=== PATIENT | female | born 1975 | race Caucasian/White ===

== ENCOUNTER 2016-10-20 11:21 | Day surgery (SDC) | payer OTHER ==
[2016-10-16 11:06] VITALS: BMI 28.5
[~2016-10-20 11:21] MED LIST: DEXAMETHASONE SOD PHOSPHATE 10 MG/ML 1 ML VIAL IV ONE; HYDROmorphone 1 MG/ML 1 ML SYRINGE IVP PRN; LACTATED RINGERS 1,000 ML IV SCH; MIDAZOLAM 2 MG/2 ML VIAL IV PRN; ONDANSETRON 4 MG/2 ML VIAL IVP ONE; Pre Op ABX Message 1 EACH MISC MISCELLANE ONE; SCOPOLAMINE 1.5MG/72HR PATCH TRANSDERM ONE
[2016-10-20 11:55] VITALS: RESP 16; TEMP 97.7
[2016-10-20] MEDS ORDERED: LIDOCAINE 1% 20 ML VIAL (10MG/ML) FOR IV START INTRADERMA ONE (11:56)
[2016-10-20] MEDS ORDERED: KETOROLAC 30 MG/ML 1 ML VIAL ONE (14:02)
[2016-10-20] MEDS ORDERED: fentaNYL (PF) 50 MCG/ML 2 ML AMP ONE (14:02)
[2016-10-20] MEDS ORDERED: LIDOCAINE 2% (PF) 20 MG/ML 10ML SQ ONE (14:02)
[2016-10-20] MEDS ORDERED: LIDOCAINE 1% INJ 10MG/ML (20 ML MDV) ONE (14:02)
[2016-10-20] MEDS ORDERED: MIDAZOLAM 2 MG/2 ML VIAL ONE (14:02)
[2016-10-20] MEDS ORDERED: PROPOFOL 10 MG/ML 20 ML VIAL IV ONE (14:02)
[2016-10-20 15:03] VITALS: BP 111/64; PULSE 88
--- NOTE | 2016-10-20 17:57 | P.OP ---
Date of Procedure: 10/20/16 Procedure(s) Performed: PREOPERATIVE DIAGNOSES: 1. Right carpal tunnel syndrome POSTOPERATIVE DIAGNOSES: 1 Right carpal tunnel syndrome PROCEDURES PERFORMED: 1. Right open carpal tunnel release ANESTHESIA: Local plus IV sedation FIRE CAPTAIN MARINE: None COMPLICATIONS: None ESTIMATED BLOOD LOSS: Less than 10 cc TOURNIQUET: 10 minutes DISPOSITION: To post-anesthesia care unit INDICATIONS: Mariah is a 41-year-old female with a history of carpal tunnel syndrome, who presents today for carpal tunnel release. The risks and potential complications of surgery have been discussed at length. The consent form has been signed. PROCEDURE: The patient was taken to the operating room after appropriate consent was obtained. IV sedation was initiated and the right upper extremity was prepared and draped in the usual aseptic fashion with Hibiclens prep. The path of the incision and deeper tissues were injected with 2% Lidocaine solution. A total of approximately 10 cc was used. Exsanguination of the limb with an Esmarch bandage was accomplished and the tourniquet was inflated to 200 mm Hg. The skin was then incised with a scalpel just through the dermis into the subcutaneous tissue. The location of the incision was at the base of the palm, at the radial border of the fourth ray. Blunt spreading using dissecting scissors was performed down to palmar fascia, which was then split using a #15 blade scalpel, revealing the underlying transverse carpal ligament. The transverse carpal ligament was incised with this blade under direct visualization at its ulnar border until it was fully released. The contents of the carpal tunnel were normal. No aberrant muscles, tenosynovitis, or tumors were noted. The proximal and distal fascial releases were completed using gentle push technique with small dissecting scissors. Complete release was confirmed by visualization and palpation. Hemostasis was obtained with a bipolar electrocautery device as well as pressure over the wound after deflation of the tourniquet. Closure was performed with 4-0 nylon sutures in vertical mattress technique. Sterile dressing and light compressive dressing were applied and the patient was taken to recovery room in stable condition. Sponge and needle count were correct.
== END 2016-10-20 15:14 | disposition home or self-care (01) ==
LOC: OR 11:21
PROVIDERS: ATTEND Orthopaedic Surgery
DX: G56.03 Carpal tunnel syndrome, bilateral upper limbs (principal); Z87.891 Personal history of nicotine dependence; Z88.1 Allergy status to other antibiotic agents; Z88.0 Allergy status to penicillin
CPT/HCPCS: 81025; 64721; J2250; J1100; J2001 ×2; J2405; J3010; J1885; J2704

== ENCOUNTER 2016-11-14 07:32 | Day surgery (SDC) | payer OTHER ==
[2016-11-10 14:50] VITALS: BMI 28.1
[~2016-11-14 07:32] MED LIST changes: +ACETAMINOPHEN TAB 500 MG TAB PO ONE; +MELOXICAM 7.5 MG TAB PO ONE
[2016-11-14 08:01] VITALS: TEMP 97.8
[2016-11-14] MEDS ORDERED: LIDOCAINE 1% 20 ML VIAL (10MG/ML) FOR IV START INTRADERMA ONE (08:12)
[2016-11-14] MEDS ORDERED: LIDOCAINE 1% INJ 10MG/ML (20 ML MDV) ONE (09:27)
[2016-11-14] MEDS ORDERED: PROPOFOL 10 MG/ML 20 ML VIAL IV ONE (09:27)
[2016-11-14] MEDS ORDERED: MIDAZOLAM 2 MG/2 ML VIAL ONE (09:27)
[2016-11-14] MEDS ORDERED: LIDOCAINE HCL/PF 20 MG/ML 10 ML AMP SQ ONE (09:51)
[2016-11-14 10:26] VITALS: RESP 18
[2016-11-14 10:43] VITALS: BP 104/67; PULSE 75
--- NOTE | 2016-11-24 08:14 | P.OP ---
Date of Procedure: 11/14/16 Preoperative Diagnosis: Postoperative Diagnosis: Procedure(s) Performed: PREOPERATIVE DIAGNOSES: 1. Left carpal tunnel syndrome POSTOPERATIVE DIAGNOSES: 1. Left carpal tunnel syndrome PROCEDURES PERFORMED: 1. Left open carpal tunnel release ANESTHESIA: Local plus IV sedation BONE GLUE MAKER: None COMPLICATIONS: None ESTIMATED BLOOD LOSS: Less than 10 cc TOURNIQUET: 10 minutes DISPOSITION: To post-anesthesia care unit INDICATIONS: Mariah is a 41-year-old female with a history of carpal tunnel syndrome, who presents today for carpal tunnel release. The risks and potential complications of surgery have been discussed at length. The consent form has been signed. PROCEDURE: The patient was taken to the operating room after appropriate consent was obtained. IV sedation was initiated and the right upper extremity was prepared and draped in the usual aseptic fashion with Hibiclens prep. The path of the incision and deeper tissues were injected with 2% Lidocaine solution. A total of approximately 10 cc was used. Exsanguination of the limb with an Esmarch bandage was accomplished and the tourniquet was inflated to 200 mm Hg. The skin was then incised with a scalpel just through the dermis into the subcutaneous tissue. The location of the incision was at the base of the palm, at the radial border of the fourth ray. Blunt spreading using dissecting scissors was performed down to palmar fascia, which was then split using a #15 blade scalpel, revealing the underlying transverse carpal ligament. The transverse carpal ligament was incised with this blade under direct visualization at its ulnar border until it was fully released. The contents of the carpal tunnel were normal. No aberrant muscles, tenosynovitis, or tumors were noted. The proximal and distal fascial releases were completed using gentle push technique with small dissecting scissors. Complete release was confirmed by visualization and palpation. Hemostasis was obtained with a bipolar electrocautery device as well as pressure over the wound after deflation of the tourniquet. Closure was performed with 4-0 nylon sutures in vertical mattress technique. Sterile dressing and light compressive dressing were applied and the patient was taken to recovery room in stable condition. Sponge and needle count were correct. Implants: Indications for Procedure: Operative Findings: Description of Procedure:
== END 2016-11-14 11:07 | disposition home or self-care (01) ==
LOC: OR 07:32
PROVIDERS: ATTEND Orthopaedic Surgery
DX: G56.02 Carpal tunnel syndrome, left upper limb (principal); G56.01 Carpal tunnel syndrome, right upper limb; F17.200 Nicotine dependence, unspecified, uncomplicated; Z88.1 Allergy status to other antibiotic agents; Z88.0 Allergy status to penicillin
CPT/HCPCS: 81025; 64721; J2250; J1100; J2405; J2001 ×2; J2704

== ENCOUNTER → 2017-11-11 | Outpatient (CLI) | payer OTHER | END | disposition home or self-care (01) | LOC: LABWHC1 08:49 | PROVIDERS: ATTEND Internal Medicine Cardiovascular Disease | DX: E78.2 Mixed hyperlipidemia (principal) | CPT/HCPCS: 36415; 83695; 83704 ==

== ENCOUNTER → 2018-04-15 | Outpatient (CLI) | payer OTHER ==
--- NOTE | 2018-04-15 16:04 | CT ---
EXAMINATION TYPE: CT angio chest DATE OF EXAM: 04/15/2018 COMPARISON: None HISTORY: Chest pain and SOB x3 days CT DLP: 227.4 mGycm CONTRAST: CT chest with contrast and 3D reconstruction with MIP imaging is performed with IV Contrast, patient injected with 100 mL of Isovue 370. Contrast-enhanced CT of the chest was performed through the course of the pulmonary arteries with uriel g and mediastinal window settings submitted. 3D reconstruction with MIP imaging was also performed. PULMONARY ARTERIES: The pulmonary arteries and their major tributaries are patent. I do not see christiano dence for sizable filling defect to suggest pulmonary embolic process. LUNGS: The lungs are clear and free of infiltrate. No evidence for atelectasis. No pulmonary nodule or mass is detected. No pleural effusion. MEDIASTINUM: Thoracic aorta is of normal caliber,however, evaluation is limited given timing of the contrast bolus. If there is concern for thoracic aortic pathology consider QUEENIE. Correlate clinicall y . The heart is not enlarged. No evidence for mediastinal mass. No mediastinal lymph nodes greater than 1cm. HILAR STRUCTURES: No evidence for mass. No hilar lymph nodes greater than 1 cm. UPPER ABDOMEN: Incidental cholelithiasis. IMPRESSION: 1. No evidence for Pulmonary embolism at this time.
== END | disposition home or self-care (01) ==
LOC: RADCTMAIN 15:13
PROVIDERS: ATTEND Nurse Practitioner Family
DX: R07.1 Chest pain on breathing (principal)
CPT/HCPCS: 71275; Q9967

== ENCOUNTER 2018-10-02 09:48 | Emergency (ER) | payer OTHER ==
[2018-10-02 09:55] VITALS: RESP 18
[2018-10-02] MEDS ORDERED: IPRATROPIUM-ALBUTEROL 3 ML NEB INHALATION STA (10:20)
--- NOTE | 2018-10-02 10:23 | ED ---
Chest Pain HPI - General Chief Complaint: Chest Pain Stated Complaint: Chest pain Time Seen by Provider: 10/02/18 10:08 Source: patient Mode of arrival: wheelchair Limitations: no limitations - History of Present Illness Initial Comments: Patient is a 43-year-old female presenting for chest pain. The patient states that for the last 7 days, she has had a "head cold" where she has been having runny nose, congestion and coughing. However, for last 2 days, she has been having left-sided chest pressure which is been constant. She admits to some weird tingling sensation on the top of her chest as well. She states that she has not had any fevers or chills or vomiting or diarrhea but has a little bit of nausea. She was seen at [facility] and sent here for further evaluation. Pt also denies any prolonged periods of immobility, CA, DVT/PE, estrogen use, or recent surgery. - Related Data Home Medications Medication Instructions Recorded Confirmed Bismuth Subsalicylate 524 mg PO Q8H 10/02/18 10/02/18 [Pepto-Bismol] Multivitamin/Iron/Folic Acid 1 tab PO DAILY 10/02/18 10/02/18 [Centrum Complete Multivit Tab] Phenylephrine/Dm/Acetaminop/GG 5 ml PO Q8HR 10/02/18 10/02/18 [Vicks Dayquil Severe Cold-Flu] Theraflu Cold And Flu 30 ml PO Q8H 10/02/18 10/02/18 Allergies Allergy/AdvReac Type Severity Reaction Status Date / Time cefaclor [From [facility]] Allergy Swelling Verified 10/02/18 10:15 Penicillins Allergy Swelling Verified 10/02/18 10:15 Review of Systems ROS Statement: Those systems with pertinent positive or pertinent negative responses have been documented in the HPI. Constitutional: Negative for chills, fatigue and fever. HENT: Positive for congestion. Positive for runny nose Respiratory: Positive for chest tightness, shortness of breath and negative for wheezing. Positive for cough Cardiovascular: Positive for chest pain and negative for palpitations. Gastrointestinal: Negative for abdominal pain. Negative for abdominal distention, diarrhea, nausea and vomiting. Genitourinary: Negative for dysuria. Musculoskeletal: Negative for back pain, neck pain and neck stiffness. Skin: Negative for color change. Neurological: Negative for dizziness, speech difficulty, weakness and light- headedness. Psychiatric/Behavioral: Negative for agitation and confusion. Negative for anxiety ROS Other: All systems not noted in ROS Statement are negative. EKG Findings - EKG Comments: EKG Findings:: EKG shows normal sinus rhythm with rate of 72 bpm, ID interval 142, QRS 78, QTC 418. There is no significant ST depressions or elevations. Past Medical History Past Medical History: No Reported History Additional Past Medical History / Comment(s): CARPAL TUNNEL SYNDROME LEFT WRIST., PT HAD RIGHT WRIST CTR ON 10/20/16-STATES INCISION AREA "PEELING". History of Any Multi-Drug Resistant Organisms: None Reported Past Surgical History: Tubal Ligation, Uterine Ablation Additional Past Surgical History / Comment(s): bilateral salpinectomy, CARPAL TUNNEL RELEASE RIGHT WRIST (10/20/16) Past Anesthesia/Blood Transfusion Reactions: Postoperative Nausea & Vomiting (PONV) Past Psychological History: No Psychological Hx Reported Smoking Status: Current some day smoker Past Alcohol Use History: Occasional Past Drug Use History: None Reported - Past Family History Mother Family Medical History: No Reported History General Exam - General Exam Comments Initial Comments: Constitutional: Pt appears well-developed and well-nourished. No distress. Head: Normocephalic and atraumatic. Eyes: EOM are normal. Neck: Normal range of motion. Neck supple. Cardiovascular: Normal rate, regular rhythm, S1 normal, S2 normal and normal heart sounds. Exam reveals no gallop and no friction rub. No murmur heard. Pulmonary/Chest: Effort normal and breath sounds normal. No tachypnea and no bradypnea. No respiratory distress. No wheezes or rales noted. Abdominal: Soft. Bowel sounds are normal. Pt exhibits no shifting dullness, no distension, no pulsatile liver, no fluid wave, no abdominal bruit and no ascites. There is no rigidity, no rebound, no guarding, no tenderness at McBurney's point and negative Damian's sign. There is no tenderness. Musculoskeletal: Normal range of motion. Neurological: Pt is alert and oriented to person, place, and time. No cranial nerve deficit. Skin: Skin is warm and dry. No rash noted. Pt is not diaphoretic. No erythema. No pallor. Psychiatric: Pt has a normal mood and affect. Pt behavior is normal. Thought content normal. Limitations: no limitations Course Vital Signs 10/02/18 10/02/18 10/02/18 09:52 10:08 10:29 Temperature 98.1 F Pulse Rate 79 82 Pulse Rate [ 85 [employer] Devil ] Respiratory 18 Rate Blood Pressure 126/82 O2 Sat by Pulse 99 Oximetry 10/02/18 10/02/18 10/02/18 10:37 12:18 13:18 Temperature 97.9 F Pulse Rate 80 63 77 Pulse Rate [ Printer'[employer] Devil ] Respiratory 18 18 Rate Blood Pressure 112/74 107/80 O2 Sat by Pulse 99 100 Oximetry Chest Pain MDM - MDM Serial troponins were negative as well as d-dimer and EKG had no significant findings consistent with ACS. Chest x-ray was also negative for infection. Findings were consistent with possible costochondritis as well as muscle skeletal pain. However, the patient was advised that if the symptoms worsen, she should return as ACS cannot be completely excluded. There is also no evidence of significant leukocytosis or electrolyte derangements.Explained all labs and diagnostic test results and that we will discharge the patient home and patient is to follow up with PCP in 1-2 days and return to the ED if symptoms worsen. Pt is agreeable to plan. Disposition Clinical Impression: Chest pain, Upper respiratory infection Disposition: HOME SELF-CARE Condition: Good Instructions (If sedation given, give patient instructions): Chest Pain (ED), Costochondritis (ED) Is patient prescribed a controlled substance at d/c from ED?: No Referrals: Deepa Hernandez MD [Primary Care Provider] - 1-2 days Time of Disposition: 13:57
[2018-10-02 10:31] LABS: Basophils # (A) 0.1 k/uL (0-0.2); Basophils % (A) 1 %; Eosinophils # (A) 0.2 k/uL (0-0.7); Eosinophils % (A) 2 %; HCT 45.4 % (34.0-46.0); HGB 14.3 gm/dL (11.4-16.0); Lymphocytes # (A) 2.3 k/uL (1.0-4.8); Lymphocytes % (A) 25 %; MCH 29.5 pg (25.0-35.0); MCHC 31.6 g/dL (31.0-37.0); MCV 93.5 fL (80.0-100.0); Mean Platelet Volume 7.1; Monocytes # (A) 0.5 k/uL (0-1.0); Monocytes % (A) 5 %; Neutrophils # (A) 6.1 k/uL (1.3-7.7); Neutrophils % (A) 65 %; Platelet Count 321 k/uL (150-450); RBC 4.86 m/uL (3.80-5.40); RDW 13.3 % (11.5-15.5); WBC 9.4 k/uL (3.8-10.6)
[2018-10-02 10:40] LABS: ALT 26 U/L (9-52); AST 31 U/L (14-36); Albumin 4.5 g/dL (3.5-5.0); Alkaline Phosphatase 83 U/L (38-126); Anion Gap 9 mmol/L; Blood Urea Nitrogen 9 mg/dL (7-17); Calcium 10.2 mg/dL (8.4-10.2); Carbon Dioxide 23 mmol/L (22-30); Chloride 109 mmol/L (98-107); Glucose 104 mg/dL (74-99); Potassium 4.5 mmol/L (3.5-5.1); Sodium 141 mmol/L (137-145); Total Bilirubin 0.7 mg/dL (0.2-1.3); Total Protein 7.3 g/dL (6.3-8.2)
[2018-10-02 10:50] LABS: D-Dimer 0.3 mg/L FEU (<0.60); INR 0.9 (<1.2); Partial Thromboplastin Time 24.8 sec (22.0-30.0); Prothrombin Time 9.8 sec (9.0-12.0)
--- NOTE | 2018-10-02 10:54 | XR ---
EXAMINATION TYPE: XR chest 2V DATE OF EXAM: 10/02/2018 HISTORY: Chest Pain. REFERENCE: Previous study dated 03/08/2012. FINDINGS: The lungs are clear. Pleural spaces are clear. The heart is not enlarged. IMPRESSION: NO ACTIVE INTRATHORACIC DISEASE.
[2018-10-02 14:38] VITALS: BP 127/79; PULSE 74; TEMP 98.1
== END 2018-10-02 14:37 | disposition home or self-care (01) ==
LOC: EC 09:48
DX: J06.9 Acute upper respiratory infection, unspecified (principal); R07.89 Other chest pain; F17.200 Nicotine dependence, unspecified, uncomplicated; Z88.0 Allergy status to penicillin; Z88.1 Allergy status to other antibiotic agents; Z79.899 Other long term (current) drug therapy
CPT/HCPCS: 36415; 71046; 80053; 81025; 83735; 84484; 85025; 85379; 85610; 85730; 93005; 94640; 99285

== ENCOUNTER 2019-09-13 13:01 | Emergency (ER) | payer OTHER ==
[2019-09-13 13:05] VITALS: TEMP 97.2
[2019-09-13] MEDS ORDERED: ASPIRIN 81 MG PO STA (13:25)
[2019-09-13] MEDS ORDERED: NITROGLYCERIN OINT 1 INCH/GM PACKET TOPICAL STA (13:25)
--- NOTE | 2019-09-13 13:32 | ED ---
General Adult HPI - General Chief complaint: Chest Pain Stated complaint: Chest pain Time Seen by Provider: 09/13/19 13:09 Source: patient, EMS, RN notes reviewed Mode of arrival: EMS Limitations: no limitations - History of Present Illness Initial comments: Patient is a pleasant 44-year-old female presenting to the emergency Department with complaints of chest discomfort. Onset of symptoms was just prior to arrival. Patient was doing laundry. Patient had chest pressure/tightness with some radiation towards the shoulder. Patient was short of breath and sweaty however those both resolved. There was some mild nausea that has also resolved. No history of similar symptoms previously. Symptoms were severe however now mild following nitroglycerin. Patient does have history of hypercholesterolemia and tobacco use. - Related Data Home Medications Medication Instructions Recorded Confirmed Bismuth Subsalicylate 524 mg PO Q8H 10/02/18 10/02/18 [Pepto-Bismol] Multivitamin/Iron/Folic Acid 1 tab PO DAILY 10/02/18 10/02/18 [Centrum Complete Multivit Tab] Phenylephrine/Dm/Acetaminop/GG 5 ml PO Q8HR 10/02/18 10/02/18 [Vicks Dayquil Severe Cold-Flu] Theraflu Cold And Flu 30 ml PO Q8H 10/02/18 10/02/18 Allergies Allergy/AdvReac Type Severity Reaction Status Date / Time cefaclor [From [facility]] Allergy Swelling Verified 10/02/18 10:15 Penicillins Allergy Swelling Verified 10/02/18 10:15 Review of Systems ROS Statement: Those systems with pertinent positive or pertinent negative responses have been documented in the HPI. ROS Other: All systems not noted in ROS Statement are negative. Constitutional: Denies: fever Eyes: Denies: eye pain ENT: Denies: ear pain Respiratory: Reports: as per HPI. Denies: cough Cardiovascular: Reports: as per HPI, chest pain Endocrine: Denies: fatigue Gastrointestinal: Reports: as per HPI. Denies: abdominal pain Genitourinary: Denies: dysuria Musculoskeletal: Denies: back pain Skin: Denies: rash Neurological: Denies: weakness Past Medical History Past Medical History: No Reported History Additional Past Medical History / Comment(s): CARPAL TUNNEL SYNDROME LEFT WRIST., PT HAD RIGHT WRIST CTR ON 10/20/16-STATES INCISION AREA "PEELING". History of Any Multi-Drug Resistant Organisms: None Reported Past Surgical History: Tubal Ligation, Uterine Ablation Additional Past Surgical History / Comment(s): bilateral salpinectomy, CARPAL TUNNEL RELEASE RIGHT WRIST (10/20/16) Past Anesthesia/Blood Transfusion Reactions: Postoperative Nausea & Vomiting (PONV) Past Psychological History: No Psychological Hx Reported Smoking Status: Current every day smoker Past Alcohol Use History: Occasional Past Drug Use History: None Reported - Past Family History Mother Family Medical History: No Reported History General Exam Limitations: no limitations General appearance: alert, in no apparent distress Head exam: Present: normocephalic Eye exam: Present: normal appearance Neck exam: Present: normal inspection Respiratory exam: Present: normal lung sounds bilaterally. Absent: chest wall tenderness Cardiovascular Exam: Present: regular rate, normal rhythm Expanded Peripheral pulses: 2+: Radial (R), Radial (L), Posterior Tibialis (R), Posterior Tibialis (L), Dorsalis Pedis (R), Dorsalis Pedis (L) GI/Abdominal exam: Present: soft. Absent: distended, tenderness Extremities exam: Present: normal inspection. Absent: pedal edema, calf tenderness Neurological exam: Present: alert Psychiatric exam: Present: normal affect, normal mood Skin exam: Present: normal color Course Vital Signs 09/13/19 09/13/19 09/13/19 13:02 13:14 13:30 Temperature 97.2 F L Pulse Rate 82 83 75 Respiratory 16 18 20 Rate Blood Pressure 117/72 117/72 103/68 O2 Sat by Pulse 97 97 97 Oximetry EKG Findings - EKG Comments: EKG Findings:: Normal sinus rhythm at 77. OK 140. QRS 78. QT 374. QTC 423. Normal axis. Normal QRS. No acute ST change. Medical Decision Making - Medical Decision Making Patient reevaluated and resting comfortably in bed, symptom-free. Patient updated and recommended admission. Patient is made aware of limitations of emergency department. Patient is made aware that troponin can be delayed and heart attack has not been ruled out at this time. Patient also made aware that risk for heart attack in the near future could be possible. Patient made aware recommendation is for admission for further testing and cardiology evaluation. Patient does demonstrate medical decision making. Patient refuses to stay, m ostly secondary to concerns regarding coronavirus pandemic. Patient will leave AGAINST MEDICAL ADVICE. - Lab Data Result diagrams: 09/13/19 13:19 09/13/19 13:19 Lab Results 09/13/19 09/13/19 09/13/19 Range/Units 13:19 13:19 13:19 WBC 15.4 H (3.8-10.6) k/uL RBC 4.67 (3.80-5.40) m/uL Hgb 13.9 (11.4-16.0) gm/dL Hct 42.8 (34.0-46.0) % MCV 91.7 (80.0-100.0) fL MCH 29.8 (25.0-35.0) pg MCHC 32.5 (31.0-37.0) g/dL RDW 13.1 (11.5-15.5) % Plt Count 269 (150-450) k/uL Neutrophils % 80 % Lymphocytes % 15 % Monocytes % 3 % Eosinophils % 1 % Basophils % 1 % Neutrophils # 12.4 H (1.3-7.7) k/uL Lymphocytes # 2.3 (1.0-4.8) k/uL Monocytes # 0.5 (0-1.0) k/uL Eosinophils # 0.1 (0-0.7) k/uL Basophils # 0.1 (0-0.2) k/uL PT 9.8 (9.0-12.0) sec INR 0.9 (<1.2) APTT 23.2 (22.0-30.0) sec D-Dimer 0.36 (<0.60) mg/L FEU Sodium 136 L (137-145) mmol/L Potassium 4.1 (3.5-5.1) mmol/L Chloride 104 (98-107) mmol/L Carbon Dioxide 24 (22-30) mmol/L Anion Gap 8 mmol/L BUN 13 (7-17) mg/dL Creatinine 0.72 (0.52-1.04) mg/dL Est GFR (CKD-EPI)AfAm >90 (>60 ml/min/1.73 sqM) Est GFR (CKD-EPI)NonAf >90 (>60 ml/min/1.73 sqM) Glucose 118 H (74-99) mg/dL Calcium 9.4 (8.4-10.2) mg/dL Magnesium 2.0 (1.6-2.3) mg/dL Total Bilirubin 0.6 (0.2-1.3) mg/dL AST 112 H (14-36) U/L ALT 60 H (4-34) U/L Alkaline Phosphatase 97 (38-126) U/L Troponin I (0.000-0.034) ng/mL Total Protein 6.9 (6.3-8.2) g/dL Albumin 4.1 (3.5-5.0) g/dL 09/13/19 Range/Units 13:19 WBC (3.8-10.6) k/uL RBC (3.80-5.40) m/uL Hgb (11.4-16.0) gm/dL Hct (34.0-46.0) % MCV (80.0-100.0) fL MCH (25.0-35.0) pg MCHC (31.0-37.0) g/dL RDW (11.5-15.5) % Plt Count (150-450) k/uL Neutrophils % % Lymphocytes % % Monocytes % % Eosinophils % % Basophils % % Neutrophils # (1.3-7.7) k/uL Lymphocytes # (1.0-4.8) k/uL Monocytes # (0-1.0) k/uL Eosinophils # (0-0.7) k/uL Basophils # (0-0.2) k/uL PT (9.0-12.0) sec INR (<1.2) APTT (22.0-30.0) sec D-Dimer (<0.60) mg/L FEU Sodium (137-145) mmol/L Potassium (3.5-5.1) mmol/L Chloride (98-107) mmol/L Carbon Dioxide (22-30) mmol/L Anion Gap mmol/L BUN (7-17) mg/dL Creatinine (0.52-1.04) mg/dL Est GFR (CKD-EPI)AfAm (>60 ml/min/1.73 sqM) Est GFR (CKD-EPI)NonAf (>60 ml/min/1.73 sqM) Glucose (74-99) mg/dL Calcium (8.4-10.2) mg/dL Magnesium (1.6-2.3) mg/dL Total Bilirubin (0.2-1.3) mg/dL AST (14-36) U/L ALT (4-34) U/L Alkaline Phosphatase (38-126) U/L Troponin I <0.012 (0.000-0.034) ng/mL Total Protein (6.3-8.2) g/dL Albumin (3.5-5.0) g/dL - Radiology Data Radiology results: image reviewed (Chest x-ray shows no acute process) Disposition Clinical Impression: Chest pain Disposition: Left Against Medical Advice Instructions (If sedation given, give patient instructions): Chest Pain (ED) Additional Instructions: Aspirin daily. Please follow-up with primary care physician tomorrow. Return for chest pain, difficulty breathing, worsening or changing symptoms or any other concerns. You're leaving AGAINST MEDICAL ADVICE. Is patient prescribed a controlled substance at d/c from ED?: No Referrals: Deepa Hernandez MD [Primary Care Provider] - 1-2 days Time of Disposition: 14:47
[2019-09-13 13:43] LABS: Basophils # (A) 0.1 k/uL (0-0.2); Basophils % (A) 1 %; Eosinophils # (A) 0.1 k/uL (0-0.7); Eosinophils % (A) 1 %; HCT 42.8 % (34.0-46.0); HGB 13.9 gm/dL (11.4-16.0); Lymphocytes # (A) 2.3 k/uL (1.0-4.8); Lymphocytes % (A) 15 %; MCH 29.8 pg (25.0-35.0); MCHC 32.5 g/dL (31.0-37.0); MCV 91.7 fL (80.0-100.0); Mean Platelet Volume 7.5; Monocytes # (A) 0.5 k/uL (0-1.0); Monocytes % (A) 3 %; Neutrophils # (A) 12.4 k/uL (1.3-7.7); Neutrophils % (A) 80 %; Platelet Count 269 k/uL (150-450); RBC 4.67 m/uL (3.80-5.40); RDW 13.1 % (11.5-15.5); WBC 15.4 k/uL (3.8-10.6)
--- NOTE | 2019-09-13 13:43 | XR ---
EXAMINATION TYPE: XR chest 2V DATE OF EXAM: 09/13/2019 COMPARISON: 10/02/2018 HISTORY: Chest pain TECHNIQUE: Frontal and lateral views of the chest are obtained. FINDINGS: There is no focal air space opacity. No evidence for pneumothorax. No pleural effusion. The cardiac silhouette size is within normal limits. The osseous structures are grossly intact. IMPRESSION: 1. No acute cardiopulmonary process.
[2019-09-13 13:59] LABS: D-Dimer 0.36 mg/L FEU (<0.60); INR 0.9 (<1.2); Partial Thromboplastin Time 23.2 sec (22.0-30.0); Prothrombin Time 9.8 sec (9.0-12.0)
[2019-09-13 14:05] LABS: ALT 60 U/L (4-34); AST 112 U/L (14-36); African American GFR (CKD) >90 (>60 ml/min/1.73 sqM); Albumin 4.1 g/dL (3.5-5.0); Alkaline Phosphatase 97 U/L (38-126); Anion Gap 8 mmol/L; Blood Urea Nitrogen 13 mg/dL (7-17); Calcium 9.4 mg/dL (8.4-10.2); Carbon Dioxide 24 mmol/L (22-30); Chloride 104 mmol/L (98-107); Glucose 118 mg/dL (74-99); Non-African American GFR(CKD) >90 (>60 ml/min/1.73 sqM); Potassium 4.1 mmol/L (3.5-5.1); Sodium 136 mmol/L (137-145); Total Bilirubin 0.6 mg/dL (0.2-1.3); Total Protein 6.9 g/dL (6.3-8.2)
[2019-09-13 14:57] VITALS: BP 117/79; PULSE 87; RESP 12
[2019-09-13 16:09] LABS: Hepatitis A Antibody IgM NEGATIVE
[2019-09-14 14:30] LABS: Hepatitis B Core IgM Non-Reactive (Non-Reactive); Hepatitis B Surface Antigen Non-Reactive (Non-Reactive); Hepatitis C IgG Antibody Non-Reactive (Non-Reactive)
== END 2019-09-13 14:57 | disposition left against medical advice (07) ==
LOC: EC 13:01
DX: R07.89 Other chest pain (principal); F17.200 Nicotine dependence, unspecified, uncomplicated; Z88.0 Allergy status to penicillin; Z88.1 Allergy status to other antibiotic agents
CPT/HCPCS: 36415; 71046; 80053; 80074; 83735; 84484; 85025; 85379; 85610; 85730; 93005; 99285

== ENCOUNTER → 2020-02-01 | Outpatient (CLI) | payer OTHER ==
[2020-02-01 20:22] LABS: Hepatitis A Ab, Total Non-Reactive (Non-Reactive); Hepatitis B Surface Antigen Non-Reactive (Non-Reactive)
== END | disposition home or self-care (01) ==
LOC: LABWHC1 12:05
PROVIDERS: ATTEND Midwife
DX: N95.1 Menopausal and female climacteric states (principal); Z11.3 Encounter for screening for infections with a predominantly sexual mode of transmission
CPT/HCPCS: 36415; 83001; 86708; 86780; 87340; 87522

== ENCOUNTER 2021-06-10 11:41 | Emergency (ER) | payer OTHER ==
[2021-06-10 12:15] VITALS: RESP 18; TEMP 98.3
[2021-06-10] MEDS ORDERED: LIDOCAINE 1% INJ 10MG/ML (20 ML MDV) SQ ONE (12:44)
[2021-06-10] MEDS ORDERED: DIPH,PERTUS(ACELL)TETVAC-LF 0.5 ML VIAL IM ONE (12:58)
--- NOTE | 2021-06-10 13:27 | XR ---
EXAMINATION TYPE: XR finger LT DATE OF EXAM: 06/10/2021 COMPARISON: NONE HISTORY: Laceration injury with pain. TECHNIQUE: 3 views left thumb. FINDINGS: No acute fracture or dislocation in the left thumb. Joint spaces are preserved. Overlying s oft tissue shows linear lucency suspected laceration near the ulnar base of the first proximal phalan x without radiodense foreign body identified. IMPRESSION: As above.
--- NOTE | 2021-06-10 13:59 | ED ---
Wound/Laceration HPI - General Chief Complaint: Wound/Laceration Stated Complaint: thumb lac Time Seen by Provider: 06/10/21 12:43 Source: patient, RN notes reviewed Mode of arrival: ambulatory Limitations: no limitations - History of Present Illness Initial Comments: Patient is a 45-year-old female that presents to the emergency room with a left thumb laceration. 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 She notes that she is unsure of her tetanus status. She denied any other issues or complaints. She notes that she really doesn't go to doctors for follow-up very often. She is otherwise well-appearing. She denied chest pain first breath headache nausea vomiting diarrhea constipation fever fatigue chills. - Related Data Home Medications Medication Instructions Recorded Confirmed Bismuth Subsalicylate 524 mg PO Q8H 10/02/18 10/02/18 [Pepto-Bismol] Multivitamin/Iron/Folic Acid 1 tab PO DAILY 10/02/18 10/02/18 [Centrum Complete Multivit Tab] Phenylephrine/Dm/Acetaminop/GG 5 ml PO Q8HR 10/02/18 10/02/18 [Vicks Dayquil Severe Cold-Flu] Theraflu Cold And Flu 30 ml PO Q8H 10/02/18 10/02/18 Previous Rx's Medication Instructions Recorded Doxycycline Monohydrate [Monodox] 100 mg PO Q12HR #20 cap 06/10/21 Allergies Allergy/AdvReac Type Severity Reaction Status Date / Time cefaclor [From Ceclor] Allergy Swelling Verified 06/10/21 12:12 Penicillins Allergy Swelling Verified 06/10/21 12:12 Review of Systems ROS Statement: Those systems with pertinent positive or pertinent negative responses have been documented in the HPI. ROS Other: All systems not noted in ROS Statement are negative. Past Medical History Past Medical History: No Reported History Additional Past Medical History / Comment(s): CARPAL TUNNEL SYNDROME LEFT WRIST., PT HAD RIGHT WRIST CTR ON 10/20/16-STATES INCISION AREA "PEELING". History of Any Multi-Drug Resistant Organisms: None Reported Past Surgical History: Tubal Ligation, Uterine Ablation Additional Past Surgical History / Comment(s): bilateral salpinectomy, CARPAL TUNNEL RELEASE RIGHT WRIST (10/20/16) Past Anesthesia/Blood Transfusion Reactions: Postoperative Nausea & Vomiting (PONV) Past Psychological History: No Psychological Hx Reported Smoking Status: Current every day smoker Past Alcohol Use History: Occasional Past Drug Use History: None Reported - Past Family History Mother Family Medical History: No Reported History General Exam Limitations: no limitations General appearance: alert, in no apparent distress Head exam: Present: atraumatic, normocephalic, normal inspection Eye exam: Present: normal appearance, PERRL, EOMI. Absent: scleral icterus, conjunctival injection, periorbital swelling ENT exam: Present: normal exam, mucous membranes moist Neck exam: Present: normal inspection Respiratory exam: Present: normal lung sounds bilaterally. Absent: respiratory distress, wheezes, rales, rhonchi, stridor Cardiovascular Exam: Present: regular rate, normal rhythm, normal heart sounds. Absent: systolic murmur, diastolic murmur, rubs, gallop, clicks Extremities exam: Present: normal inspection, full ROM, normal capillary refill. Absent: tenderness, pedal edema, joint swelling, calf tenderness Neurological exam: Present: alert, oriented X3 Psychiatric exam: Present: normal affect, normal mood Skin exam: Present: warm, dry, intact, normal color. Absent: rash Expanded Type of lesion: Present: laceration (Base of left thumb anterior aspect) Course Vital Signs 06/10/21 12:12 Temperature 98.3 F Pulse Rate 97 Respiratory 18 Rate Blood Pressure 122/72 O2 Sat by Pulse 97 Oximetry Procedures - Laceration Laceration #1 Consent Obtained: verbal consent Indication: laceration Site: foot (Left thumb) Size (cm): 2 Description: linear Depth: simple, single layer Anesthetic Used: lidocaine 1% Anesthesia Technique: local infiltration Amount (mls): 3 Pre-repair: wound explored Type of Sutures: nylon Size of Sutures: 5-0 Number of Sutures: 3 Technique: simple, interrupted Patient Tolerated Procedure: well, no complications Medical Decision Making - Medical Decision Making 45-year-old female with a laceration to left thumb. Tetanus updated, x-ray of the left thumb ordered. X-ray negative for any acute fractures dislocations or foreign bodies. Patient tolerated suturing well. Case discussed with Dr. Negrete, patient discharge home on antibiotics. Disposition Clinical Impression: Laceration Disposition: HOME SELF-CARE Condition: Stable Instructions (If sedation given, give patient instructions): Laceration (ED), Care For Your Stitches (ED) Additional Instructions: Please return to the Emergency Department if symptoms worsen or any other concerns. Follow-up with primary care in 1-2 days. Take antibiotics as prescribed until complete. Please return in 7-10 days to have sutures removed. Is patient prescribed a controlled substance at d/c from ED?: No Referrals: Deepa Hernandez MD [Primary Care Provider] - 1-2 days Time of Disposition: 13:58
[2021-06-10 14:32] VITALS: BP 107/79; PULSE 77
== END 2021-06-10 14:32 | disposition home or self-care (01) ==
LOC: EC 11:41
DX: S61.012A Laceration without foreign body of left thumb without damage to nail, initial encounter (principal); F17.200 Nicotine dependence, unspecified, uncomplicated; Z88.0 Allergy status to penicillin; Z98.51 Tubal ligation status; W26.8XXA Contact with other sharp object(s), not elsewhere classified, initial encounter
CPT/HCPCS: 99283; 90471; 12001; 73140; 90715; J2001

== ENCOUNTER 2023-11-26 15:24 | Emergency (ER) | payer OTHER ==
[2023-11-26 15:31] VITALS: RESP 18
--- NOTE | 2023-11-26 16:08 | ED ---
Abdominal Pain HPI - General Chief Complaint: Abdominal Pain Stated Complaint: food poisioning Time Seen by Provider: 11/26/23 15:56 Source: patient, RN notes reviewed, old records reviewed Mode of arrival: ambulatory Limitations: no limitations - History of Present Illness Initial Comments: This is a 48-year-old female to the ER for evaluation abdominal pain nausea vomiting and diarrhea. Severe and significant epigastric abdominal pain which she believes is caused from food poisoning from [employer] yesterday. Symptoms got worse today and throughout the day this morning and progressively worse here in the ER with main complaint being pain currently. Patient has no family with similar sick complaint patient has no fevers MD Complaint: abdominal pain -: hour(s) Location: RUQ, epigastric Radiation: RUQ, epigastric Migration to: epigastric Severity: moderate Severity scale (1-10): 6 Quality: cramping, fullness, sharp Consistency: constant Improves With: nothing Worsens With: nothing Associated Symptoms: nausea, vomiting, diarrhea Treatments Prior to Arrival: other (0) - Related Data Previous Rx's Medication Instructions Recorded oxyCODONE HCL [oxyCODONE HCL (IR)] 5 mg PO Q6H 3 Days #12 cap 11/28/23 Allergies Allergy/AdvReac Type Severity Reaction Status Date / Time Penicillins Allergy Swelling Verified 11/27/23 10:35 cefaclor [From Ceclor] AdvReac Nausea & Verified 11/27/23 10:35 Vomiting quetiapine [From Seroquel] AdvReac Hallucinati Verified 11/27/23 10:35 ons Review of Systems ROS Statement: Those systems with pertinent positive or pertinent negative responses have been documented in the HPI. ROS Other: All systems not noted in ROS Statement are negative. Past Medical History Past Medical History: No Reported History Additional Past Medical History / Comment(s): CARPAL TUNNEL SYNDROME LEFT WRIST., PT HAD RIGHT WRIST CTR ON 10/20/16-STATES INCISION AREA "PEELING". History of Any Multi-Drug Resistant Organisms: None Reported Past Surgical History: Tubal Ligation, Uterine Ablation Additional Past Surgical History / Comment(s): bilateral salpinectomy, CARPAL TUNNEL RELEASE RIGHT WRIST (10/20/16) Past Anesthesia/Blood Transfusion Reactions: Postoperative Nausea & Vomiting (PONV) Past Psychological History: No Psychological Hx Reported Smoking Status: Current every day smoker Past Alcohol Use History: Occasional Past Drug Use History: None Reported - Past Family History Mother Family Medical History: No Reported History General Exam Limitations: no limitations General appearance: alert, in no apparent distress Head exam: Present: atraumatic, normocephalic, normal inspection Eye exam: Present: normal appearance, PERRL, EOMI. Absent: scleral icterus, conjunctival injection, periorbital swelling ENT exam: Present: normal exam, mucous membranes moist Neck exam: Present: normal inspection. Absent: tenderness, meningismus, lymphadenopathy Respiratory exam: Present: normal lung sounds bilaterally. Absent: respiratory distress, wheezes, rales, rhonchi, stridor Cardiovascular Exam: Present: regular rate, normal rhythm, normal heart sounds. Absent: systolic murmur, diastolic murmur, rubs, gallop, clicks GI/Abdominal exam: Present: soft, distended, tenderness, guarding, normal bowel sounds. Absent: rebound, rigid Extremities exam: Present: normal inspection, full ROM, normal capillary refill. Absent: tenderness, pedal edema, joint swelling, calf tenderness Back exam: Present: normal inspection Neurological exam: Present: alert, oriented X3, CN II-XII intact Psychiatric exam: Present: normal affect, normal mood Skin exam: Present: warm, dry, intact, normal color. Absent: rash Course Vital Signs 11/26/23 11/26/23 15:26 19:03 Temperature 97.5 F L 98.3 F Pulse Rate 79 75 Respiratory 18 18 Rate Blood Pressure 112/75 127/78 O2 Sat by Pulse 97 Oximetry - Reevaluation(s) Reevaluation #1: 11/26/23 17:14 Medical records reviewed Reevaluation #2: Patient symptoms unchanged here in the ER Reevaluation #3: Patient informed of results and questions answered Reevaluation #4: Was pt. sent in by a medical professional or institution (, PA, LIMNOLOGIST, urgent care, hospital, or snf...) When possible be specific @ -no Did you speak to anyone other than the patient for history (EMS, parent, family, police, friend...)? What history was obtained from this source @ -no Did you review nursing and triage notes (agree or disagree)? Why? @ -agree Are old charts reviewed (outside hosp., previous admission, EMS record, old EKG, old radiological studies, urgent care reports/EKG's, snf records)? Report findings @ -yes Differential Diagnosis (chest pain, altered mental status, abdominal pain women, abdominal pain men, vaginal bleeding, weakness, fever, dyspnea, syncope, headache, dizziness, GI bleed, back pain, seizure, CVA, palpatations, mental health, musculoskeletal)? @ -prior EKG interpreted by me (3pts min.). @ -no X-rays interpreted by me (1pt min.). @ -no CT interpreted by me (1pt min.). @ -no U/S interpreted by me (1pt. min.). @ -Yes positive for tumefactive sludge What testing was considered but not performed or refused? (CT, X-rays, U/S, labs)? Why? @ -none What meds were considered but not given or refused? Why? @ -none Did you discuss the management of the patient with other professionals (professionals i.e. , PA, LIMNOLOGIST, lab, RT, psych nurse, social services assistant, equipment operating engineer, teacher, intelligence officer basic, complex case manager)? Give summary @ -no Was smoking cessation discussed for >3mins.? @ -no Were there social determinants of health that impacted care today? How? (Homelessness, low income, unemployed, alcoholism, drug addiction, transportation, low edu. Level, literacy, decrease access to med. care, fpc, rehab)? @ -none Was there de-escalation of care discussed even if they declined (Discuss DNR or withdrawal of care, Hospice)? DNR status @ -no What co-morbidities impacted this encounter? (DM, HTN, Smoking, COPD, CAD, Cancer, CVA, ARF, Chemo, Hep., AIDS, mental health diagnosis, sleep apnea, morbid obesity)? @ -none Was patient admitted / discharged? Hospital course, mention meds given and route, prescriptions, significant lab abnormalities, going to OR and other pertinent info. @ -48 female with signs and symptoms of gallbladder pain, patient does have tumefactive sludge on ultrasound but no change in lab values. Patient would like to follow-up on an outpatient for further surgical evaluation Discharge Was critical care preformed (if so, how long)? @ -no Undiagnosed new problem with uncertain prognosis? @ -no Drug Therapy requiring intensive monitoring for toxicity (Heparin, Nitro, Insulin, Cardizem)? @ -no Were any procedures done? @ -no Diagnosis/symptom? @ -Abdominal pain, gallbladder disease Acute, or Chronic, or Acute on Chronic? @ -Acute Uncomplicated (without systemic symptoms) or Complicated (systemic symptoms)? @ -Complicated Side effects of treatment? @ -no Exacerbation, Progression, or Severe Exacerbation? @ -exacerbation Poses a threat to life or bodily function? How? (Chest pain, [place], [place], pneumonia, PE, COPD, DKA, ARF, appy, cholecystitis, CVA, Diverticulitis, Homicidal, Suicidal, threat to staff... and all critical care pts) @ -yes significant gallbladder infection Reevaluation #5: Differential Abdominal Pain Women: Appendicitis, Cholecystitis, diverticulosis, ischemic bowel, pancreatitis, hepatitis, UTI, gastroenteritis, AAA, incarcerated hernia, bowel obstruction, constipation, inflammatory bowel, hepatitis, peptic ulcer disease, splenic infarction, perforated viscus, vulvitis, ovarian torsion, PID, kidney stone, placenta abruption, this is not meant to be an all-inclusive list Medical Decision Making - Medical Decision Making Female at this time feels improved here in the ER, patient will follow-up outpatient with general surgery - Lab Data Result diagrams: 11/26/23 16:13 11/26/23 16:13 Lab Results 11/26/23 11/26/23 11/26/23 Range/Units 16:13 16:13 16:13 WBC 19.2 H (3.8-10.6) k/uL RBC 5.03 (3.80-5.40) m/uL Hgb 15.0 (11.4-16.0) gm/dL Hct 46.2 H (34.0-46.0) % MCV 91.8 (80.0-100.0) fL MCH 29.7 (25.0-35.0) pg MCHC 32.4 (31.0-37.0) g/dL RDW 13.4 (11.5-15.5) % Plt Count 333 (150-450) k/uL MPV 8.2 Neutrophils % 86 % Lymphocytes % 9 % Monocytes % 3 % Eosinophils % 1 % Basophils % 0 % Neutrophils # 16.4 H (1.3-7.7) k/uL Lymphocytes # 1.7 (1.0-4.8) k/uL Monocytes # 0.6 (0-1.0) k/uL Eosinophils # 0.2 (0-0.7) k/uL Basophils # 0.1 (0-0.2) k/uL Sodium 140 (137-145) mmol/L Potassium 4.4 (3.5-5.1) mmol/L Chloride 110 H (98-107) mmol/L Carbon Dioxide 21 L (22-30) mmol/L Anion Gap 9 mmol/L BUN 11 (7-17) mg/dL Creatinine 0.66 (0.52-1.04) mg/dL Est GFR (CKD-EPI)AfAm >90 (>60 ml/min/1.73 sqM) Est GFR (CKD-EPI)NonAf >90 (>60 ml/min/1.73 sqM) Glucose 127 H (74-99) mg/dL Plasma Lactic Acid Lonny (0.7-2.0) mmol/L Calcium 9.7 (8.4-10.2) mg/dL Phosphorus 3.6 (2.5-4.5) mg/dL Magnesium 2.1 (1.6-2.3) mg/dL Total Bilirubin 1.7 H (0.2-1.3) mg/dL AST 154 H (14-36) U/L ALT 105 H (4-34) U/L Alkaline Phosphatase 106 (38-126) U/L Total Protein 7.4 (6.3-8.2) g/dL Albumin 4.6 (3.5-5.0) g/dL Amylase 69 (30-110) U/L Lipase 71 (23-300) U/L Urine Color Yellow Urine Appearance Cloudy H (Clear) Urine pH 6.5 (5.0-8.0) Ur Specific [place] 1.025 (1.001-1.035) Urine Protein 1+ H (Negative) Urine Glucose (UA) Negative (Negative) Urine Ketones Negative (Negative) Urine Blood Small H (Negative) Urine Nitrite Negative (Negative) Urine Bilirubin 1+ H (Negative) Urine Urobilinogen 2.0 (<2.0) mg/dL Ur Leukocyte Esterase Negative (Negative) Urine RBC 16 H (0-5) /hpf Urine WBC 3 (0-5) /hpf Ur Squamous Epith Cells 18 H (0-4) /hpf Urine Bacteria Rare H (None) /hpf Urine Mucus Moderate H (None) /hpf 11/26/23 Range/Units 16:13 WBC (3.8-10.6) k/uL RBC (3.80-5.40) m/uL Hgb (11.4-16.0) gm/dL Hct (34.0-46.0) % MCV (80.0-100.0) fL MCH (25.0-35.0) pg MCHC (31.0-37.0) g/dL RDW (11.5-15.5) % Plt Count (150-450) k/uL MPV Neutrophils % % Lymphocytes % % Monocytes % % Eosinophils % % Basophils % % Neutrophils # (1.3-7.7) k/uL Lymphocytes # (1.0-4.8) k/uL Monocytes # (0-1.0) k/uL Eosinophils # (0-0.7) k/uL Basophils # (0-0.2) k/uL Sodium (137-145) mmol/L Potassium (3.5-5.1) mmol/L Chloride (98-107) mmol/L Carbon Dioxide (22-30) mmol/L Anion Gap mmol/L BUN (7-17) mg/dL Creatinine (0.52-1.04) mg/dL Est GFR (CKD-EPI)AfAm (>60 ml/min/1.73 sqM) Est GFR (CKD-EPI)NonAf (>60 ml/min/1.73 sqM) Glucose (74-99) mg/dL Plasma Lactic Acid Lonny 1.2 (0.7-2.0) mmol/L Calcium (8.4-10.2) mg/dL Phosphorus (2.5-4.5) mg/dL Magnesium (1.6-2.3) mg/dL Total Bilirubin (0.2-1.3) mg/dL AST (14-36) U/L ALT (4-34) U/L Alkaline Phosphatase (38-126) U/L Total Protein (6.3-8.2) g/dL Albumin (3.5-5.0) g/dL Amylase (30-110) U/L Lipase (23-300) U/L Urine Color Urine Appearance (Clear) Urine pH (5.0-8.0) Ur Specific [place] (1.001-1.035) Urine Protein (Negative) Urine Glucose (UA) (Negative) Urine Ketones (Negative) Urine Blood (Negative) Urine Nitrite (Negative) Urine Bilirubin (Negative) Urine Urobilinogen (<2.0) mg/dL Ur Leukocyte Esterase (Negative) Urine RBC (0-5) /hpf Urine WBC (0-5) /hpf Ur Squamous Epith Cells (0-4) /hpf Urine Bacteria (None) /hpf Urine Mucus (None) /hpf - Radiology Data Radiology results: report reviewed (US gallbladder positive for Tumefactive Sludge), image reviewed Disposition Clinical Impression: Abdominal pain, Gastroenteritis, Nausea & vomiting, Cholecystitis Disposition: HOME SELF-CARE Instructions (If sedation given, give patient instructions): Cholecystitis (ED), Biliary Colic (ED), Low Fat Diet (ED), Acute Nausea and Vomiting (ED) Is patient prescribed a controlled substance at d/c from ED?: No Referrals: Deepa Hernandez MD [Primary Care Provider] - 1-2 days Rios Cox MD [Medical Doctor] - 1-2 days Time of Disposition: 19:00
[2023-11-26] MEDS: ONDANSETRON 4 MG/2 ML VIAL IVP STA (16:14)
[2023-11-26] MEDS: PANTOPRAZOLE 40 MG/10 ML VIAL IVP STA (16:15)
[2023-11-26] MEDS: MORPHINE SULFATE 4 MG/ML SYRINGE IVP STA (16:15)
[2023-11-26] MEDS: SODIUM CHLORIDE 0.9% 1,000 ML IV STA ×2 (16:16→17:24)
[2023-11-26 16:25] LABS: Basophils # (A) 0.1 k/uL (0-0.2); Basophils % (A) 0 %; Eosinophils # (A) 0.2 k/uL (0-0.7); Eosinophils % (A) 1 %; HCT 46.2 % (34.0-46.0); Lymphocytes # (A) 1.7 k/uL (1.0-4.8); Lymphocytes % (A) 9 %; MCH 29.7 pg (25.0-35.0); MCHC 32.4 g/dL (31.0-37.0); MCV 91.8 fL (80.0-100.0); Mean Platelet Volume 8.2; Monocytes # (A) 0.6 k/uL (0-1.0); Monocytes % (A) 3 %; Neutrophils # (A) 16.4 k/uL (1.3-7.7); Neutrophils % (A) 86 %; Platelet Count 333 k/uL (150-450); RBC 5.03 m/uL (3.80-5.40); RDW 13.4 % (11.5-15.5); WBC 19.2 k/uL (3.8-10.6)
[2023-11-26 16:36] LABS: ALT 105 U/L (4-34); AST 154 U/L (14-36); African American GFR (CKD) >90 (>60 ml/min/1.73 sqM); Albumin 4.6 g/dL (3.5-5.0); Alkaline Phosphatase 106 U/L (38-126); Amylase 69 U/L (30-110); Anion Gap 9 mmol/L; Blood Urea Nitrogen 11 mg/dL (7-17); Calcium 9.7 mg/dL (8.4-10.2); Carbon Dioxide 21 mmol/L (22-30); Chloride 110 mmol/L (98-107); Glucose 127 mg/dL (74-99); Lipase 71 U/L (23-300); Magnesium 2.1 mg/dL (1.6-2.3); Non-African American GFR(CKD) >90 (>60 ml/min/1.73 sqM); Phosphorus 3.6 mg/dL (2.5-4.5); Potassium 4.4 mmol/L (3.5-5.1); Sodium 140 mmol/L (137-145); Total Bilirubin 1.7 mg/dL (0.2-1.3); Total Protein 7.4 g/dL (6.3-8.2)
[2023-11-26 17:04] LABS: Appearance,Urine Cloudy (Clear); Bacteria,Urine Rare /hpf; Bilirubin,Urine 1+ (Negative); Blood,Urine Small (Negative); Color,Urine Yellow; Glucose,Urine (UA) Negative (Negative); Ketones,Urine Negative (Negative); Leukocyte Esterase,Urine Negative (Negative); Mucus,Urine Moderate /hpf; Nitrite,Urine Negative (Negative); PH, Urine 6.5 (5.0-8.0); Protein,Urine 1+ (Negative); RBC,Urine 16 /hpf (0-5); Specific Gravity,Urine 1.025 (1.001-1.035); Squamous Epithelial Cell,Urine 18 /hpf (0-4); WBC,Urine 3 /hpf (0-5)
--- NOTE | 2023-11-26 17:54 | US ---
DATE OF EXAM: 11/26/2023 COMPARISON: NONE CLINICAL INDICATION: Female, 48 years old with history of pain; Patient states pain since 3am TECHNIQUE: Multiple sonographic images of the right upper quadrant are obtained. FINDINGS: EXAM MEASUREMENTS: Liver Length: 15.5 cm Gallbladder Wall: 0.3 cm CBD: 0.4 cm Right Kidney: 10.4 x 4.3 x 5.4 cm JEWEL HOLE DRILLER NOTES:Slightly limited due to midline gas Pancreas: Obscured by bowel gas Liver: wnl as best visualized Gallbladder: Nonshadowing nodular echogenicity dependent within the gallbladder. No hydropic change, wall thickening, surrounding fluid, or shadowing calculi. Evidence for sonographic Damian's sign: No CBD: wnl Right Kidney: No hydronephrosis or masses seen as best visualized today IMPRESSION: 1. Layering gravel or tumefactive sludge in the gallbladder. No ancillary findings of acute cholecyst itis. 2. No biliary ductal dilatation.
[2023-11-26] MEDS: ONDANSETRON 4 MG ODT STARTER PACK 2 TAB BTL PO STA (19:01)
[2023-11-26] MEDS: ACET/COD 300 MG/30 MG STARTER PACK 6 TAB BTL PO STA (19:01)
[2023-11-26] MEDS: IBUPROFEN 600 MG STARTER PACK 4 TAB BTL PO STA (19:01)
[2023-11-26 19:05] VITALS: BP 127/78; PULSE 75; TEMP 98.3
== END 2023-11-26 19:05 | disposition home or self-care (01) ==
LOC: EC 15:24
DX: K52.9 Noninfective gastroenteritis and colitis, unspecified (principal); K81.9 Cholecystitis, unspecified; F17.200 Nicotine dependence, unspecified, uncomplicated; Z88.0 Allergy status to penicillin; Z88.1 Allergy status to other antibiotic agents
CPT/HCPCS: 36415; 80053; 82150; 83605; 83690; 83735; 84100; 85025; 81001; 76705; 99284; 96374; 96375 ×2; 96361 ×2; J2270; J2405; S0119; C9113

== ENCOUNTER 2023-11-27 08:52 | Inpatient (IN) | payer OTHER ==
[2023-11-27] MEDS: HYDROmorphone 0.5 MG/0.5 ML SYRINGE IVP STA ×3 (10:09→12:39)
[2023-11-27] MEDS: KETOROLAC 15 MG/ML 1 ML VIAL IVP STA (10:11)
[2023-11-27] MEDS: ONDANSETRON 4 MG/2 ML VIAL IVP STA (10:11)
[2023-11-27] MEDS: SODIUM CHLORIDE 0.9% 500 ML 500 ML IV STA (10:12)
--- NOTE | 2023-11-27 10:30 | ED ---
General Adult HPI - General Chief complaint: Abdominal Pain Stated complaint: Abdominal Pain Time Seen by Provider: 11/27/23 09:20 Source: patient, RN notes reviewed, old records reviewed Mode of arrival: ambulatory Limitations: no limitations - History of Present Illness Initial comments: This is a 48-year-old female who presents to the emergency department complaining of right upper quadrant abdominal pain. Patient states it started yesterday and she came into the hospital was told it was her gallbladder and she was to follow-up with Dr. Cox. Patient comes back today because the pain is not resolved in fact is getting worse. She states she is very nauseated and the pain is much more significant in the right upper quadrant. Patient denies any chest pain difficulty breathing shortness of breath. Patient denies any vomiting or diarrhea. - Related Data Home Medications Medication Instructions Recorded Confirmed No Known Home Medications 11/26/23 11/27/23 Allergies Allergy/AdvReac Type Severity Reaction Status Date / Time Penicillins Allergy Swelling Verified 11/27/23 10:35 cefaclor [From Ceclor] AdvReac Nausea & Verified 11/27/23 10:35 Vomiting quetiapine [From Seroquel] AdvReac Hallucinati Verified 11/27/23 10:35 ons Review of Systems ROS Statement: Those systems with pertinent positive or pertinent negative responses have been documented in the HPI. ROS Other: All systems not noted in ROS Statement are negative. Past Medical History Past Medical History: No Reported History Additional Past Medical History / Comment(s): CARPAL TUNNEL SYNDROME LEFT WRIST., PT HAD RIGHT WRIST CTR ON 10/20/16-STATES INCISION AREA "PEELING". History of Any Multi-Drug Resistant Organisms: None Reported Past Surgical History: Tubal Ligation, Uterine Ablation Additional Past Surgical History / Comment(s): bilateral salpinectomy, CARPAL TUNNEL RELEASE RIGHT WRIST (10/20/16) Past Anesthesia/Blood Transfusion Reactions: Postoperative Nausea & Vomiting (PONV) Past Psychological History: No Psychological Hx Reported Smoking Status: Current every day smoker Past Alcohol Use History: Occasional Past Drug Use History: None Reported - Past Family History Mother Family Medical History: No Reported History General Exam - General Exam Comments Initial Comments: GENERAL: Patient is well-developed and well-nourished. Patient is nontoxic and well- hydrated and is in moderate distress. ENT: Neck is soft and supple. No significant lymphadenopathy is noted. Oropharynx is clear. Moist mucous membranes. Neck has full range of motion without eliciting any pain. EYES: The sclera were anicteric and conjunctiva were pink and moist. Extraocular movements were intact and pupils were equal round and reactive to light. Eyelids were unremarkable. PULMONARY: Unlabored respirations. Good breath sounds bilaterally. No audible rales rhonchi or wheezing was noted. CARDIOVASCULAR: There is a regular rate and rhythm without any murmurs gallops or rubs. ABDOMEN: Right upper quadrant abdominal pain SKIN: Skin is clear with no lesions or rashes and otherwise unremarkable. NEUROLOGIC: Patient is alert and oriented x3. Cranial nerves II through XII are grossly intact. Motor and sensory are also intact. Normal speech, volume and content. Symmetrical smile. MUSCULOSKELETAL: Normal extremities with adequate strength and full range of motion. LYMPHATICS: No significant lymphadenopathy is noted PSYCHIATRIC: Normal psychiatric evaluation. Limitations: no limitations Course Vital Signs 11/27/23 11/27/23 09:14 12:15 Temperature 98 F Pulse Rate 20 L Respiratory 22 Rate Blood Pressure 146/77 131/79 O2 Sat by Pulse 99 Oximetry Medical Decision Making - Medical Decision Making Was pt. sent in by a medical professional or institution (, PA, APPEALS ASSISTANT, urgent care, hospital, or fci...) When possible be specific @ -No Did you speak to anyone other than the patient for history (EMS, parent, family, police, friend...)? What history was obtained from this source @ -No Did you review nursing and triage notes (agree or disagree)? Why? @ -I reviewed and agree with nursing and triage notes Were old charts reviewed (outside hosp., previous admission, EMS record, old EKG, old radiological studies, urgent care reports/EKG's, fci records)? Report findings @ -No old charts were reviewed Differential Diagnosis (chest pain, altered mental status, abdominal pain women, abdominal pain men, vaginal bleeding, weakness, fever, dyspnea, syncope, headache, dizziness, GI bleed, back pain, seizure, CVA, palpatations, mental health, musculoskeletal)? @ -Differential Abdominal Pain Women: Appendicitis, Cholecystitis, diverticulosis, ischemic bowel, pancreatitis, hepatitis, UTI, gastroenteritis, AAA, incarcerated hernia, bowel obstruction, constipation, inflammatory bowel, hepatitis, peptic ulcer disease, splenic infarction, perforated viscus, vulvitis, ovarian torsion, PID, kidney stone, placenta abruption, this is not meant to be an all-inclusive list EKG interpreted by me (3pts min.). @ -As above X-rays interpreted by me (1pt min.). @ -None done CT interpreted by me (1pt min.). @ -CT of the abdomen shows no acute abnormality U/S interpreted by me (1pt. min.). @ -None done What testing was considered but not performed or refused? (CT, X-rays, U/S, labs)? Why? @ -None What meds were considered but not given or refused? Why? @ -None Did you discuss the management of the patient with other professionals (prof trujillo i.e. , PA, APPEALS ASSISTANT, lab, RT, psych nurse, social media developer, supervisor gelatin plant, teacher, principal gifts officer, case management director)? Give summary @ -No Was smoking cessation discussed for >3mins.? @ -No Was critical care preformed (if so, how long)? @ -No Were there social determinants of health that impacted care today? How? (Homelessness, low income, unemployed, alcoholism, drug addiction, transportation, low edu. Level, literacy, decrease access to med. care, [facility], rehab)? @ -No Was there de-escalation of care discussed even if they declined (Discuss DNR or withdrawal of care, Hospice)? DNR status @ -No What co-morbidities impacted this encounter? (DM, HTN, Smoking, COPD, CAD, Cancer, CVA, ARF, Chemo, Hep., AIDS, mental health diagnosis, sleep apnea, morbid obesity)? @ -None Was patient admitted / discharged? Hospital course, mention meds given and route, prescriptions, significant lab abnormalities, going to OR and other pertinent info. @ -Patient's bilirubin AST and ALT were all more elevated than yesterday. Patient continued to have significant abdominal pain patient received 3 doses of Dilaudid and continued to have significant abdominal pain. I spoke with [facility] hospitalist they agreed to admit the patient admit the patient wrote admitting orders Undiagnosed new problem with uncertain prognosis? @ -No Drug Therapy requiring intensive monitoring for toxicity (Heparin, Nitro, Ins ulin, Cardizem)? @ -No Were any procedures done? @ -No Diagnosis/symptom? @ -Abdominal pain Acute, or Chronic, or Acute on Chronic? @ -Acute Uncomplicated (without systemic symptoms) or Complicated (systemic symptoms)? @ -Complicated Side effects of treatment? @ -No Exacerbation, Progression, or Severe Exacerbation? @ -No Poses a threat to life or bodily function? How? (Chest pain, [place], ND, pneumonia, PE, COPD, DKA, ARF, appy, cholecystitis, CVA, Diverticulitis, Homicidal, Suicidal, threat to staff... and all critical care pts) @ -No Diagnosis/symptom? @ -Transaminitis Acute, or Chronic, or Acute on Chronic? @ -Acute Uncomplicated (without systemic symptoms) or Complicated (systemic symptoms)? @ -Complicated Side effects of treatment? @ -None Exacerbation, Progression, or Severe Exacerbation] @ -No Poses a threat to life or bodily function? @ -No - Lab Data Result diagrams: 11/27/23 09:49 11/27/23 09:49 Lab Results 11/27/23 11/27/23 11/27/23 Range/Units 09:49 09:49 09:49 WBC 9.0 (3.8-10.6) k/uL RBC 4.79 (3.80-5.40) m/uL Hgb 14.3 (11.4-16.0) gm/dL Hct 45.0 (34.0-46.0) % MCV 93.8 (80.0-100.0) fL MCH 29.9 (25.0-35.0) pg MCHC 31.9 (31.0-37.0) g/dL RDW 13.3 (11.5-15.5) % Plt Count 253 (150-450) k/uL MPV 8.6 Neutrophils % 73 % Lymphocytes % 20 % Monocytes % 5 % Eosinophils % 1 % Basophils % 1 % Neutrophils # 6.5 (1.3-7.7) k/uL Lymphocytes # 1.8 (1.0-4.8) k/uL Monocytes # 0.5 (0-1.0) k/uL Eosinophils # 0.1 (0-0.7) k/uL Basophils # 0.1 (0-0.2) k/uL Sodium 141 (137-145) mmol/L Potassium 4.5 (3.5-5.1) mmol/L Chloride 113 H (98-107) mmol/L Carbon Dioxide 21 L (22-30) mmol/L Anion Gap 7 mmol/L BUN 8 (7-17) mg/dL Creatinine 0.68 (0.52-1.04) mg/dL Est GFR (CKD-EPI)AfAm >90 (>60 ml/min/1.73 sqM) Est GFR (CKD-EPI)NonAf >90 (>60 ml/min/1.73 sqM) Glucose 104 H (74-99) mg/dL Plasma Lactic Acid Lonny (0.7-2.0) mmol/L Calcium 9.6 (8.4-10.2) mg/dL Total Bilirubin 2.5 H (0.2-1.3) mg/dL AST 231 H (14-36) U/L ALT 224 H (4-34) U/L Alkaline Phosphatase 87 (38-126) U/L Total Protein 6.9 (6.3-8.2) g/dL Albumin 4.2 (3.5-5.0) g/dL Amylase 60 (30-110) U/L Lipase 59 (23-300) U/L Urine Color Yellow Urine Appearance Clear (Clear) Urine pH 6.0 (5.0-8.0) Ur Specific [place] 1.006 (1.001-1.035) Urine Protein Negative (Negative) Urine Glucose (UA) Negative (Negative) Urine Ketones Negative (Negative) Urine Blood Negative (Negative) Urine Nitrite Negative (Negative) Urine Bilirubin Negative (Negative) Urine Urobilinogen <2.0 (<2.0) mg/dL Ur Leukocyte Esterase Negative (Negative) 11/27/23 Range/Units 09:49 WBC (3.8-10.6) k/uL RBC (3.80-5.40) m/uL Hgb (11.4-16.0) gm/dL Hct (34.0-46.0) % MCV (80.0-100.0) fL MCH (25.0-35.0) pg MCHC (31.0-37.0) g/dL RDW (11.5-15.5) % Plt Count (150-450) k/uL MPV Neutrophils % % Lymphocytes % % Monocytes % % Eosinophils % % Basophils % % Neutrophils # (1.3-7.7) k/uL Lymphocytes # (1.0-4.8) k/uL Monocytes # (0-1.0) k/uL Eosinophils # (0-0.7) k/uL Basophils # (0-0.2) k/uL Sodium (137-145) mmol/L Potassium (3.5-5.1) mmol/L Chloride (98-107) mmol/L Carbon Dioxide (22-30) mmol/L Anion Gap mmol/L BUN (7-17) mg/dL Creatinine (0.52-1.04) mg/dL Est GFR (CKD-EPI)AfAm (>60 ml/min/1.73 sqM) Est GFR (CKD-EPI)NonAf (>60 ml/min/1.73 sqM) Glucose (74-99) mg/dL Plasma Lactic Acid Lonny 0.8 (0.7-2.0) mmol/L Calcium (8.4-10.2) mg/dL Total Bilirubin (0.2-1.3) mg/dL AST (14-36) U/L ALT (4-34) U/L Alkaline Phosphatase (38-126) U/L Total Protein (6.3-8.2) g/dL Albumin (3.5-5.0) g/dL Amylase (30-110) U/L Lipase (23-300) U/L Urine Color Urine Appearance (Clear) Urine pH (5.0-8.0) Ur Specific [place] (1.001-1.035) Urine Protein (Negative) Urine Glucose (UA) (Negative) Urine Ketones (Negative) Urine Blood (Negative) Urine Nitrite (Negative) Urine Bilirubin (Negative) Urine Urobilinogen (<2.0) mg/dL Ur Leukocyte Esterase (Negative) Disposition Clinical Impression: Abdominal pain, Transaminitis Disposition: ADMITTED IP TO THIS HOSP Referrals: Deepa Hernandez MD [Primary Care Provider] - 1-2 days Time of Disposition: 13:38
[2023-11-27 10:49] LABS: ALT 224 U/L (4-34); AST 231 U/L (14-36); African American GFR (CKD) >90 (>60 ml/min/1.73 sqM); Albumin 4.2 g/dL (3.5-5.0); Alkaline Phosphatase 87 U/L (38-126); Amylase 60 U/L (30-110); Anion Gap 7 mmol/L; Blood Urea Nitrogen 8 mg/dL (7-17); Calcium 9.6 mg/dL (8.4-10.2); Carbon Dioxide 21 mmol/L (22-30); Chloride 113 mmol/L (98-107); Glucose 104 mg/dL (74-99); Lipase 59 U/L (23-300); Non-African American GFR(CKD) >90 (>60 ml/min/1.73 sqM); Potassium 4.5 mmol/L (3.5-5.1); Sodium 141 mmol/L (137-145); Total Bilirubin 2.5 mg/dL (0.2-1.3); Total Protein 6.9 g/dL (6.3-8.2)
[2023-11-27 10:53] LABS: Appearance,Urine Clear (Clear); Basophils # (A) 0.1 k/uL (0-0.2); Basophils % (A) 1 %; Bilirubin,Urine Negative (Negative); Blood,Urine Negative (Negative); Color,Urine Yellow; Eosinophils # (A) 0.1 k/uL (0-0.7); Eosinophils % (A) 1 %; Glucose,Urine (UA) Negative (Negative); HGB 14.3 gm/dL (11.4-16.0); Ketones,Urine Negative (Negative); Leukocyte Esterase,Urine Negative (Negative); Lymphocytes # (A) 1.8 k/uL (1.0-4.8); Lymphocytes % (A) 20 %; MCH 29.9 pg (25.0-35.0); MCHC 31.9 g/dL (31.0-37.0); MCV 93.8 fL (80.0-100.0); Mean Platelet Volume 8.6; Monocytes # (A) 0.5 k/uL (0-1.0); Monocytes % (A) 5 %; Neutrophils # (A) 6.5 k/uL (1.3-7.7); Neutrophils % (A) 73 %; Nitrite,Urine Negative (Negative); Platelet Count 253 k/uL (150-450); Protein,Urine Negative (Negative); RBC 4.79 m/uL (3.80-5.40); RDW 13.3 % (11.5-15.5); Specific Gravity,Urine 1.006 (1.001-1.035); Urobilinogen,Urine <2.0 mg/dL (<2.0)
--- NOTE | 2023-11-27 12:35 | CT ---
EXAMINATION TYPE: CT abdomen pelvis w con CT DLP: 829.6 mGycm, Automated exposure control for dose reduction was used. DATE OF EXAM: 11/27/2023 12:08 PM COMPARISON: CT abdomen pelvis most recent from CLINICAL INDICATION:Female, 48 years old with history of Abdo; RUQ pain TECHNIQUE: Axial CT abdomen pelvis w con;Sagittal and coronal reformats were created on a separate w orkstation. Contrast used:100 mL of Isovue 300 with IV Contrast, (none if empty) Oral contrast used: without Oral Contrast (none if empty) FINDINGS: LOWER CHEST: Unremarkable ABDOMEN LIVER: Unremarkable GALLBLADDER AND BILE DUCTS: Several tiny stones in the gallbladder. PANCREAS: Unremarkable. SPLEEN: Unremarkable. ADRENAL GLANDS: Unremarkable. KIDNEYS AND URETERS: No evidence of hydronephrosis or renal calculus. The ureters are unremarkable. PELVIS BLADDER: Unremarkable REPRODUCTIVE: Unremarkable. ABDOMEN & PELVIS STOMACH AND BOWEL: Stomach and duodenum are unremarkable. No evidence of bowel obstruction. Normal a ppendix identified. No diverticulitis. PERITONEUM/RETROPERITONEUM: Very small amount of free fluid in the dependent pelvis VASCULATURE: No evidence of aortic aneurysm. MUSCULOSKELETAL: No acute osseous abnormalities LYMPH NODES: No gross evidence for lymphadenopathy. SOFT TISSUE/ABDOMINAL WALL: Unremarkable IMPRESSION: 1. Very small amount free fluid in the cul-de-sac. Question recent ovulation. 2. No evidence of appendicitis or diverticulitis. 3. Uncomplicated cholelithiasis
[2023-11-27] MEDS: HYDROmorphone 1 MG/ML 1 ML SYRINGE IVP PRN (15:02)
[2023-11-27] MEDS ORDERED: HYDROmorphone 1 MG/ML 1 ML SYRINGE IVP PRN (15:02)
[2023-11-27] MEDS: SODIUM CHLORIDE 0.9% 1,000 ML IV ONE (15:04)
--- NOTE | 2023-11-27 15:31 | P.GSCN ---
History of Present Illness Consult date: 11/27/23 History of present illness: CHIEF COMPLAINT: Abdominal pain HISTORY OF PRESENT ILLNESS: This is a 48-year-old female who presented to the hospital with complaints of right upper quadrant abdominal pain that started yesterday. She is complaining of nausea and vomiting. She has been having chills and sweats. Pain had started after eating [employer]. She initially came into the ER yesterday and was told she had a bad gallbladder and to follow-up with surgeon outpatient. Patient reports her pain worsened. She is having dark urine. She came back into the ER for further evaluation. Her total bilirubin has gone up to 2.5 LFTs are elevated. Gallbladder ultrasound had reported sludge in the gallbladder. CAT scan done today had shown cholelithiasis. Patient reports no cardiac history. Surgical history includes a tubal ligation. PAST MEDICAL HISTORY: Carpal tunnel syndrome PAST SURGICAL HISTORY: Tubal ligation, uterine ablation, bilateral salpinectomy, CARPAL TUNNEL RELEASE RIGHT WRIST MEDICATIONS: See below ALLERGIES: See below SOCIAL HISTORY: No illicit drug use. Occasional alcohol use. Nicotine dependence REVIEW OF SYSTEMS: CONSTITUTIONAL: Denies fever or chills. HEENT: Denies blurred vision, vision changes, or eye pain. Denies hemoptysis CARDIOVASCULAR: Denies chest pain or pressure. RESPIRATORY: No shortness of breath. GASTROINTESTINAL: See HPI for pertinent findings HEMATOLOGIC: Denies bleeding disorders. GENITOURINARY: Denies any blood in urine or increased urinary frequency. SKIN: Denies pruitis. Denies rash. PHYSICAL EXAM: VITAL SIGNS: Reviewed GENERAL: Well-developed in no acute distress. HEENT: No sclera icterus. ABDOMEN: Soft. Nondistended. Tenderness right upper quadrant and epigastric NEUROLOGIC: Alert and oriented. Cranial nerves II through XII grossly intact. LABORATORY DATA: WBC 9.0 Hgb 14.3 platelets 253 Sodium is 141 potassium is 4.5 creatinine 0.68 Lactic acid 0.8 Total bilirubin 2.5 AST 231 ALT 224 alk phos 87 Lipase 59 Urinalysis negative for infection IMAGING: CT scan abdomen pelvis reports very small amount of free fluid in the cul-de-sac. No evidence of appendicitis or diverticulitis. Uncomplicated cholelithiasis. Gallbladder ultrasound from yesterday reported layering gravel or sludge in the gallbladder. No biliary ductal dilatation. ASSESSMENT: 1. Acute cholecystitis with cholelithiasis noted on CT scan and sludge in the gallbladder noted on ultrasound 2. Elevated total bilirubin and LFTs with possible choledocholithiasis PLAN: -Patient tentatively scheduled for laparoscopic cholecystectomy on Thursday with Dr. Olvera -Repeat LFTs in AM. If LFTs and total bilirubin continue to increase would recommend transfer due to there being no GI service for ERCP -Keep patient n.p.o. -Start antibiotics -Repeat labs in a.m. -Continue IV fluids -Continue pain management Physician Interior Mechanic note has been reviewed by physician. Signing provider agrees with the documented findings, assessment, and plan of care. Past Medical History Past Medical History: No Reported History Additional Past Medical History / Comment(s): CARPAL TUNNEL SYNDROME LEFT WRIST., PT HAD RIGHT WRIST CTR ON 10/20/16-STATES INCISION AREA "PEELING". History of Any Multi-Drug Resistant Organisms: None Reported Past Surgical History: Tubal Ligation, Uterine Ablation Additional Past Surgical History / Comment(s): bilateral salpinectomy, CARPAL TUNNEL RELEASE RIGHT WRIST (10/20/16) Past Anesthesia/Blood Transfusion Reactions: Postoperative Nausea & Vomiting (PONV) Past Psychological History: No Psychological Hx Reported Smoking Status: Current every day smoker Past Alcohol Use History: Occasional Past Drug Use History: None Reported - Past Family History Mother Family Medical History: No Reported History Medications and Allergies Home Medications Medication Instructions Recorded Confirmed Type No Known Home Medications 11/26/23 11/27/23 History Allergies Allergy/AdvReac Type Severity Reaction Status Date / Time Penicillins Allergy Swelling Verified 11/27/23 10:35 cefaclor [From Ceclor] AdvReac Nausea & Verified 11/27/23 10:35 Vomiting quetiapine [From Seroquel] AdvReac Hallucinati Verified 11/27/23 10:35 ons Surgical - Exam Vital Signs Temp Pulse Resp BP Pulse Ox 98 F 20 L 22 146/77 99 11/27/23 09:14 11/27/23 09:14 11/27/23 09:14 11/27/23 09:14 11/27/23 09:14 Results - Labs 11/27/23 09:49 11/27/23 09:49 Abnormal Lab Results - Last 24 Hours (Table) 11/27/23 Range/Units 09:49 Chloride 113 H (98-107) mmol/L Carbon Dioxide 21 L (22-30) mmol/L Glucose 104 H (74-99) mg/dL Total Bilirubin 2.5 H (0.2-1.3) mg/dL AST 231 H (14-36) U/L ALT 224 H (4-34) U/L Diabetes panel 11/27/23 Range/Units 09:49 Sodium 141 (137-145) mmol/L Potassium 4.5 (3.5-5.1) mmol/L Chloride 113 H (98-107) mmol/L Carbon Dioxide 21 L (22-30) mmol/L BUN 8 (7-17) mg/dL Creatinine 0.68 (0.52-1.04) mg/dL Glucose 104 H (74-99) mg/dL Calcium 9.6 (8.4-10.2) mg/dL AST 231 H (14-36) U/L ALT 224 H (4-34) U/L Alkaline Phosphatase 87 (38-126) U/L Total Protein 6.9 (6.3-8.2) g/dL Albumin 4.2 (3.5-5.0) g/dL Calcium panel 11/27/23 Range/Units 09:49 Calcium 9.6 (8.4-10.2) mg/dL Albumin 4.2 (3.5-5.0) g/dL Pituitary panel 11/27/23 Range/Units 09:49 Sodium 141 (137-145) mmol/L Potassium 4.5 (3.5-5.1) mmol/L Chloride 113 H (98-107) mmol/L Carbon Dioxide 21 L (22-30) mmol/L BUN 8 (7-17) mg/dL Creatinine 0.68 (0.52-1.04) mg/dL Glucose 104 H (74-99) mg/dL Calcium 9.6 (8.4-10.2) mg/dL Adrenal panel 11/27/23 Range/Units 09:49 Sodium 141 (137-145) mmol/L Potassium 4.5 (3.5-5.1) mmol/L Chloride 113 H (98-107) mmol/L Carbon Dioxide 21 L (22-30) mmol/L BUN 8 (7-17) mg/dL Creatinine 0.68 (0.52-1.04) mg/dL Glucose 104 H (74-99) mg/dL Calcium 9.6 (8.4-10.2) mg/dL Total Bilirubin 2.5 H (0.2-1.3) mg/dL AST 231 H (14-36) U/L ALT 224 H (4-34) U/L Alkaline Phosphatase 87 (38-126) U/L Total Protein 6.9 (6.3-8.2) g/dL Albumin 4.2 (3.5-5.0) g/dL
[2023-11-27] MEDS: LEVOFLOXACIN 500MG-D5W PMX 500 MG in DEXTROSE/WATER 1 100ML.BAG IVPB SCH (16:45)
[2023-11-27 17:54] LABS: Hepatitis A Antibody IgM Nonreactive (Nonreactive); Hepatitis B Core IgM Nonreactive (Nonreactive); Hepatitis B Surface Antigen Nonreactive (Nonreactive); Hepatitis C IgG Antibody Nonreactive (Nonreactive)
[2023-11-27] MEDS: MORPHINE SULFATE 4 MG/ML SYRINGE IVP PRN (19:07)
[2023-11-28 05:05] LABS: Basophils # (A) 0.1 k/uL (0-0.2); Basophils % (A) 1 %; Eosinophils # (A) 0.1 k/uL (0-0.7); Eosinophils % (A) 1 %; HCT 36.6 % (34.0-46.0); HGB 11.8 gm/dL (11.4-16.0); Lymphocytes # (A) 2.7 k/uL (1.0-4.8); Lymphocytes % (A) 34 %; MCH 30.6 pg (25.0-35.0); MCHC 32.2 g/dL (31.0-37.0); Mean Platelet Volume 8.2; Monocytes # (A) 0.5 k/uL (0-1.0); Monocytes % (A) 6 %; Neutrophils # (A) 4.5 k/uL (1.3-7.7); Neutrophils % (A) 57 %; Platelet Count 229 k/uL (150-450); RBC 3.86 m/uL (3.80-5.40); RDW 13.5 % (11.5-15.5); WBC 7.9 k/uL (3.8-10.6)
[2023-11-28 05:21] LABS: ALT 153 U/L (4-34); AST 98 U/L (14-36); African American GFR (CKD) >90 (>60 ml/min/1.73 sqM); Albumin 3.2 g/dL (3.5-5.0); Albumin/Globulin Ratio 1.5; Alkaline Phosphatase 68 U/L (38-126); Anion Gap 4 mmol/L; Bilirubin, Conjugated 0.2 mg/dL (0.0-0.3); Bilirubin,Unconjugated 0.6 mg/dL (0.0-1.1); Blood Urea Nitrogen 12 mg/dL (7-17); Calcium 8.5 mg/dL (8.4-10.2); Carbon Dioxide 21 mmol/L (22-30); Chloride 112 mmol/L (98-107); Globulin 2.1 g/dL; Glucose 100 mg/dL (74-99); Lipase 100 U/L (23-300); Non-African American GFR(CKD) >90 (>60 ml/min/1.73 sqM); Potassium 4.4 mmol/L (3.5-5.1); Sodium 137 mmol/L (137-145); Total Protein 5.3 g/dL (6.3-8.2)
--- NOTE | 2023-11-28 10:16 | P.HPIM ---
History of Present Illness H&P Date: 11/27/23 Chief Complaint: Abdominal pain 48-year-old female who presents to the emergency department complaining of right upper quadrant abdominal pain. Patient states it started yesterday and she came into the hospital was told it was her gallbladder and she was to follow-up with Dr. Cox. Patient comes back today because the pain is not resolved in fact is getting worse. She states she is very nauseated and the pain is much more significant in the right upper quadrant. Patient denies any chest pain difficulty breathing shortness of breath. Patient denies any vomiting or diarrhea. Blood work completed in ED reveals a WBC of 9.2, hemoglobin of 14.3 and platelet count of 253, sodium 141, potassium 4.1, BUNs/creatinine of 8/0.68 and blood glucose of 104, total bilirubin elevated at 2.5 with AST of 231 and ALT of 224, alk phosphatase is within normal limits, in malaise lipase are normal; UA is unremarkable CT of the abdomen and pelvis completed in ED reveals small amount of free fluid in cul-de-sac; possible recent ovulation. No evidence of appendicitis or diverticulitis. CT does reveal uncomplicated cholelithiasis Review of Systems REVIEW OF SYSTEMS: CONSTITUTIONAL: No fever, no malaise, no fatigue. HEENT: No recent visual problems or hearing problems. Denied any sore throat. CARDIOVASCULAR: No chest pain, orthopnea, PND, no palpitations, no syncope. PULMONARY: No shortness of breath, no cough, no hemoptysis. GASTROINTESTINAL: abdominal pain. NEUROLOGICAL: No headaches, no weakness, no numbness. HEMATOLOGICAL: Denies any bleeding or petechiae. GENITOURINARY: Denies any burning micturition, frequency, or urgency. MUSCULOSKELETAL/RHEUMATOLOGICAL: Denies any joint pain, swelling, or any muscle pain. ENDOCRINE: Denies any polyuria or polydipsia. The rest of the 14-point review of systems is negative. Past Medical History Past Medical History: No Reported History Additional Past Medical History / Comment(s): CARPAL TUNNEL SYNDROME LEFT WRIS T., PT HAD RIGHT WRIST CTR ON 10/20/16-STATES INCISION AREA "PEELING". History of Any Multi-Drug Resistant Organisms: None Reported Past Surgical History: Tubal Ligation, Uterine Ablation Additional Past Surgical History / Comment(s): bilateral salpinectomy, CARPAL TUNNEL RELEASE RIGHT WRIST (5/1/17) Past Anesthesia/Blood Transfusion Reactions: Postoperative Nausea & Vomiting (PONV) Past Psychological History: No Psychological Hx Reported Smoking Status: Current every day smoker Past Alcohol Use History: Occasional Past Drug Use History: None Reported - Past Family History Mother Family Medical History: No Reported History Medications and Allergies Home Medications Medication Instructions Recorded Confirmed Type No Known Home Medications 11/26/23 11/27/23 History Allergies Allergy/AdvReac Type Severity Reaction Status Date / Time Penicillins Allergy Swelling Verified 11/27/23 10:35 cefaclor [From Ceclor] AdvReac Nausea & Verified 11/27/23 10:35 Vomiting quetiapine [From Seroquel] AdvReac Hallucinati Verified 11/27/23 10:35 ons Physical Exam Vitals: Vital Signs Temp Pulse Resp BP Pulse Ox 11/27/23 12:15 131/79 11/27/23 09:14 98 F 20 L 22 146/77 99 Intake and Output 11/26/23 11/27/23 11/27/23 22:59 06:59 14:59 Other: Weight 76.657 kg Patient is well-developed and well-nourished. Patient is nontoxic and well- hydrated and is in moderate distress. Neck is soft and supple. No significant lymphadenopathy is noted. Oropharynx is clear. Moist mucous membranes. Neck has full range of motion without eliciting any pain. EYES: The sclera were anicteric and conjunctiva were pink and moist. Extraocular movements were intact and pupils were equal round and reactive to light. Eyelids were unremarkable. PULMONARY: Unlabored respirations. Good breath sounds bilaterally. No audible rales rhonchi or wheezing was noted. CARDIOVASCULAR: There is a regular rate and rhythm without any murmurs gallops or rubs. ABDOMEN: Right upper quadrant abdominal pain SKIN: clear with no lesions or rashes and otherwise unremarkable. NEUROLOGIC: Patient is alert and oriented x3. Cranial nerves II through XII are grossly intact. Motor and sensory are also intact. Normal speech, volume and content. Symmetrical smile. MUSCULOSKELETAL: Normal extremities with adequate strength and full range of motion. LYMPHATICS: No significant lymphadenopathy is noted PSYCHIATRIC: Normal psychiatric evaluation. Results CBC & Chem 7: 11/28/23 04:17 11/28/23 04:17 Labs: Abnormal Lab Results - Last 24 Hours (Table) 11/27/23 Range/Units 09:49 Chloride 113 H (98-107) mmol/L Carbon Dioxide 21 L (22-30) mmol/L Glucose 104 H (74-99) mg/dL Total Bilirubin 2.5 H (0.2-1.3) mg/dL AST 231 H (14-36) U/L ALT 224 H (4-34) U/L Assessment and Plan Assessment: 1. Acute cholecystitis/cholelithiasis --Ultrasound abdomen reveals gallbladder sludge; CT of the abdomen reveals uncomplicated cholelithiasis -- Patient has been placed on IV fluids; has been made n.p.o.; pain control with IV morphine; patient has been placed on IV antibiotics -Consult surgery for further recommendations 2. Elevated bilirubin and LFTs; likely related to acute cholecystitis/cholelithiasis -- Concern for possible choledocholithiasis -- Surgery recommending to monitor liver enzymes closely with plans to transfer patient for possible ERCP if LFTs and total bilirubin continue to trend up -Patient is tentatively scheduled for laparoscopic cholecystectomy DVT prophylaxis; SCDs CODE STATUS; full code
--- NOTE | 2023-11-28 16:50 | P.PN ---
Progress Note - Text Progress Note Date: 11/28/23 CHIEF COMPLAINT: Abdominal pain HISTORY OF PRESENT ILLNESS: NAEO. Resting comfortable. LFTS and Bilis trending down. PHYSICAL EXAM: VITAL SIGNS: Reviewed. GENERAL: Well-developed in no acute distress. HEENT: No sclera icterus. Extraocular movements grossly intact. Moist buccal mucosa. Head is atraumatic, normocephalic. ABDOMEN: Soft. Mildly distended. Abdomen TTP RUQ NEUROLOGIC: Alert and oriented. Cranial nerves II through XII grossly intact. ASSESSMENT: 1. Acute Cholecystitis 2. Elevated LFTs PLAN: -NPO/midnight -AM labs -OR tomorrow for Lap Zulma
[2023-11-28] MEDS: ONDANSETRON 4 MG/2 ML VIAL IVP PRN (22:22)
[2023-11-28] MEDS: polyethylene glycoL 3350 17 GM POWD.PACK PO SCH (22:23)
[2023-11-29] MEDS ORDERED: fentaNYL (PF) 50 MCG/ML 2 ML AMP ONE (08:01)
[2023-11-29] MEDS ORDERED: SUCCINYLCHOLINE CHLORIDE 200 MG/10 ML VIAL IV ONE (08:01)
[2023-11-29] MEDS ORDERED: PROPOFOL 10 MG/ML 20 ML VIAL IV ONE (08:01)
[2023-11-29] MEDS ORDERED: KETOROLAC 15 MG/ML 1 ML VIAL ONE (08:01)
[2023-11-29] MEDS ORDERED: ONDANSETRON 4 MG/2 ML VIAL ONE (08:01)
[2023-11-29] MEDS ORDERED: ROCURONIUM 10 MG/ML (5 ML VIAL) IV ONE (08:01)
[2023-11-29] MEDS ORDERED: MIDAZOLAM 2 MG/2 ML VIAL ONE (08:01)
[2023-11-29] MEDS: SODIUM CHLORIDE 0.9% 50 ML with ceFAZolin 2,000 MG IV ONE (08:05)
[2023-11-29] MEDS: LIDOCAINE 1%-EPI 1:100,000 20 ML VIAL SQ ONE (08:32)
[2023-11-29] MEDS: IV FLUID CONTINUATION 1,000 ML IV ONE (08:49)
[2023-11-29 09:37] LABS: Basophils # (A) 0.06 X 10*3/uL (0.00-0.10); Basophils % (A) 0.7 %; Eosinophils # (A) 0.09 X 10*3/uL (0.04-0.35); Eosinophils % (A) 1.1 %; HCT 36.8 % (37.2-46.3); HGB 11.9 g/dL (12.0-15.0); Lymphocytes # (A) 2.17 X 10*3/uL (0.90-5.00); Lymphocytes % (A) 26.7 %; MCH 30.3 pg (27.0-32.0); MCHC 32.3 g/dL (32.0-37.0); MCV 93.6 FL (80.0-97.0); Mean Platelet Volume 11.1 FL (9.5-12.2); Monocytes # (A) 0.75 X 10*3/uL (0.20-1.00); Monocytes % (A) 9.2 %; NRBC Per 100 WBC 0 X 10*3/uL (0.00-0.01); Neutrophils # (A) 5.05 X 10*3/uL (1.80-7.70); Neutrophils % (A) 62.1 %; Platelet Count 243 X 10*3/uL (140-440); RBC 3.93 X 10*6/uL (4.10-5.20); RDW 13.3 % (11.5-14.5); WBC 8.14 X 10*3/uL (4.50-10.00)
[2023-11-29] MEDS ORDERED: HYDROmorphone 1 MG/ML 1 ML SYRINGE IVP PRN (09:41)
--- NOTE | 2023-11-29 09:41 | P.OP ---
Date of Procedure: 11/29/23 Preoperative Diagnosis: cholecystitis Postoperative Diagnosis: cholecystitis Procedure(s) Performed: laparoscopic cholecystectomy Anesthesia: IAN Surgeon: Jose Olvera Estimated Blood Loss (ml): 5 Pathology: other (gallbladder) Condition: stable Disposition: PACU Description of Procedure: The patient was placed on the operating table. The patient received a general endotracheal tube anesthesia. The patients abdomen was prepped and draped in the usual sterile fashion. Through an infraumbilical stab incision, the fascia of the anterior abdominal wall was grasped with a pair of Kochers and then the Veress needle was placed in the peritoneal cavity. Position of the Veress needle was confirmed with positive drop test. The abdomen was then insufflated. After adequate insufflation, the 10 mm trocar was placed in the peritoneal cavity. Following this the laparoscope was placed in the peritoneal cavity. The patient was placed in the head-up, right side up position and then a 5 mm trocar was placed in the right lateral and right subcostal position under direct visualization. A 8 mm trocar was placed in the epigastric position. The gallbladder was grasped in the fundus and infundibulum. Traction on the gallbladder was placed in the lateral and the cephalad positions. The triangle of Calot was visualized.. The cystic duct was bluntly dissected until the union of the cystic duct and common bile duct was seen. A critical view of safety was achieved. The cystic duct was then divided and sealed with the Harmonic scissors. A PDS Endoloop was then placed throughout the cystic duct stump. The cystic artery divided and sealed with the Harmonic scissors. The gallbladder was then removed from the liver bed using Harmonic scissors. The gallbladder was then extracted through the epigastric port site. Operative field was checked for any bleeding spots and Harmonic scissors was used to coagulate the liver bed. The abdomen was irrigated. The trocars were removed. The skin was closed using interrupted 3-0 Vicryl suture. Dermabond dressing were applied. The patient tolerated the procedure well.
[2023-11-29 10:26] LABS: ALT 373 U/L (8-44); AST 309 U/L (13-35); Albumin 3.9 g/dL (3.8-4.9); Albumin/Globulin Ratio 2.29 Ratio (1.60-3.17); Alkaline Phosphatase 104 U/L (41-126); BUN/Creat Ratio 10.25 Ratio (12.00-20.00); Bilirubin, Conjugated 2.75 mg/dL (0.20-0.40); Bilirubin,Unconjugated 0.65 mg/dL (0.20-1.00); Blood Urea Nitrogen 8.2 mg/dL (9.0-27.0); Calcium 9.3 mg/dL (8.7-10.3); Carbon Dioxide 21.8 mmol/L (21.6-31.8); Chloride 107 mmol/L (96-109); Globulin 1.7 g/dL (1.6-3.3); Glucose 114 mg/dL (70-110); Potassium 4.9 mmol/L (3.5-5.5); Sodium 140 mmol/L (135-145); Total Bilirubin 3.4 mg/dL (0.3-1.2); Total Protein 5.6 g/dL (6.2-8.2)
[2023-11-29] MEDS: HYDROmorphone 1 MG/ML 1 ML SYRINGE IVP PRN (12:45)
[2023-11-29 13:26] LABS: HCT 38.5 % (34.0-46.0); HGB 12.4 gm/dL (11.4-16.0); MCH 30.4 pg (25.0-35.0); MCHC 32.3 g/dL (31.0-37.0); MCV 94.2 fL (80.0-100.0); Mean Platelet Volume 7.9; Platelet Count 244 k/uL (150-450); RBC 4.09 m/uL (3.80-5.40); RDW 13.2 % (11.5-15.5)
--- NOTE | 2023-11-29 14:33 | P.PN ---
Subjective Progress Note Date: 11/28/23 48-year-old female who presents to the emergency department complaining of right upper quadrant abdominal pain. Patient states it started yesterday and she came into the hospital was told it was her gallbladder and she was to follow-up with Dr. Cox. Patient comes back today because the pain is not resolved in fact is getting worse. She states she is very nauseated and the pain is much more significant in the right upper quadrant. Patient denies any chest pain difficulty breathing shortness of breath. Patient denies any vomiting or diarrhea. Blood work completed in ED reveals a WBC of 9.2, hemoglobin of 14.3 and platelet count of 253, sodium 141, potassium 4.1, BUNs/creatinine of 8/0.68 and blood glucose of 104, total bilirubin elevated at 2.5 with AST of 231 and ALT of 224, alk phosphatase is within normal limits, in malaise lipase are normal; UA is unremarkable CT of the abdomen and pelvis completed in ED reveals small amount of free fluid in cul-de-sac; possible recent ovulation. No evidence of appendicitis or diverticulitis. CT does reveal uncomplicated cholelithiasis --Patient continues to report pain; fair control on current pain regimen; labs are reviewed and liver enzymes and bilirubin continue to trend down -- Surgery on board; plan for cholecystectomy as long as liver enzymes and bilirubin are not getting worse Objective - Vital Signs Vital signs: Vital Signs Temp 98.9 F 11/28/23 07:00 Pulse 75 11/28/23 07:00 Resp 15 11/28/23 07:00 BP 117/71 11/28/23 07:00 Pulse Ox 96 11/28/23 07:00 FiO2 Intake & Output 11/27/23 11/28/23 11/28/23 18:59 06:59 18:59 Weight 76.657 kg 76.657 kg Other: Voiding Method Toilet # Voids 2 - Exam Patient is well-developed and well-nourished. Patient is nontoxic and well-hyd rated and is in moderate distress. Neck is soft and supple. No significant lymphadenopathy is noted. Oropharynx is clear. Moist mucous membranes. Neck has full range of motion without eliciting any pain. EYES: The sclera were anicteric and conjunctiva were pink and moist. Extraocular movements were intact and pupils were equal round and reactive to light. Eyelids were unremarkable. PULMONARY: Unlabored respirations. Good breath sounds bilaterally. No audible rales rhonchi or wheezing was noted. CARDIOVASCULAR: There is a regular rate and rhythm without any murmurs gallops or rubs. ABDOMEN: Right upper quadrant abdominal pain SKIN: clear with no lesions or rashes and otherwise unremarkable. NEUROLOGIC: Patient is alert and oriented x3. Cranial nerves II through XII are grossly intact. Motor and sensory are also intact. Normal speech, volume and content. Symmetrical smile. MUSCULOSKELETAL: Normal extremities with adequate strength and full range of motion. LYMPHATICS: No significant lymphadenopathy is noted PSYCHIATRIC: Normal psychiatric evaluation. - Labs CBC & Chem 7: 11/29/23 13:16 11/29/23 06:04 Labs: Abnormal Lab Results - Last 24 Hours (Table) 11/27/23 11/28/23 Range/Units 09:49 04:17 Chloride 113 H 112 H (98-107) mmol/L Carbon Dioxide 21 L 21 L (22-30) mmol/L Glucose 104 H 100 H (74-99) mg/dL Total Bilirubin 2.5 H 2.0 H (0.2-1.3) mg/dL AST 231 H 98 H (14-36) U/L ALT 224 H 153 H (4-34) U/L Total Protein 5.3 L (6.3-8.2) g/dL Albumin 3.2 L (3.5-5.0) g/dL Assessment and Plan Assessment: 1. Acute cholecystitis/cholelithiasis --Ultrasound abdomen reveals gallbladder sludge; CT of the abdomen reveals uncomplicated cholelithiasis -- Patient has been placed on IV fluids; has been made n.p.o.; pain control with IV morphine; patient has been placed on IV antibiotics -Consult surgery for further recommendations 2. Elevated bilirubin and LFTs; likely related to acute cholecystitis /cholelithiasis -- Concern for possible choledocholithiasis -- Surgery recommending to monitor liver enzymes closely with plans to transfer patient for possible ERCP if LFTs and total bilirubin continue to trend up -Patient is tentatively scheduled for laparoscopic cholecystectomy DVT prophylaxis; SCDs CODE STATUS; full code
--- NOTE | 2023-11-29 14:37 | P.PN ---
Subjective Progress Note Date: 11/29/23 48-year-old female who presents to the emergency department complaining of right upper quadrant abdominal pain. Patient states it started yesterday and she came into the hospital was told it was her gallbladder and she was to follow-up with Dr. Cox. Patient comes back today because the pain is not resolved in fact is getting worse. She states she is very nauseated and the pain is much more significant in the right upper quadrant. Patient denies any chest pain difficulty breathing shortness of breath. Patient denies any vomiting or diarrhea. Blood work completed in ED reveals a WBC of 9.2, hemoglobin of 14.3 and platelet count of 253, sodium 141, potassium 4.1, BUNs/creatinine of 8/0.68 and blood glucose of 104, total bilirubin elevated at 2.5 with AST of 231 and ALT of 224, alk phosphatase is within normal limits, in malaise lipase are normal; UA is unremarkable CT of the abdomen and pelvis completed in ED reveals small amount of free fluid in cul-de-sac; possible recent ovulation. No evidence of appendicitis or diverticulitis. CT does reveal uncomplicated cholelithiasis --Patient continues to report pain; fair control on current pain regimen; labs are reviewed and liver enzymes and bilirubin continue to trend down -- Surgery on board; plan for cholecystectomy as long as liver enzymes and bilirubin are not getting worse 11/29/2023 Patient is seen and evaluated in room at bedside; status post laparoscopic cholecystectomy; requires pain control with current regimen Lab review reveals WBC trended up to 14.0 from 8.14 this morning, sodium of 140, potassium 4.9, BUNs/creatinine of 8.2/0.8, total bilirubin trended up to 3.4 from 2.2 yesterday AST up to 309 with ALT of 373 -- Patient has status post laparoscopic cholecystectomy, POD #0; remains on IV antibiotics in form of Levaquin 500 milligrams daily -- Patient has been placed on a low-fat diet -Continue to monitor CBC, liver enzymes, procalcitonin Objective - Vital Signs Vital signs: Vital Signs Temp 97.5 F L 11/29/23 08:49 Pulse 69 11/29/23 09:34 Resp 16 11/29/23 09:34 BP 128/68 11/29/23 09:34 Pulse Ox 92 L 06/09/24 09:34 FiO2 Intake & Output 11/28/23 11/29/23 11/29/23 18:59 06:59 18:59 Intake Total 50 Balance 50 Intake: IV 50 Other: Voiding Method Toilet Toilet # Voids 4 2 - Exam Patient is well-developed and well-nourished. Patient is nontoxic and well- hydrated and is in moderate distress. Neck is soft and supple. No significant lymphadenopathy is noted. Oropharynx is clear. Moist mucous membranes. Neck has full range of motion without eliciting any pain. EYES: The sclera were anicteric and conjunctiva were pink and moist. Extraocular movements were intact and pupils were equal round and reactive to light. Eyelids were unremarkable. PULMONARY: Unlabored respirations. Good breath sounds bilaterally. No audible rales rhonchi or wheezing was noted. CARDIOVASCULAR: There is a regular rate and rhythm without any murmurs gallops or rubs. ABDOMEN: Right upper quadrant abdominal pain SKIN: clear with no lesions or rashes and otherwise unremarkable. NEUROLOGIC: Patient is alert and oriented x3. Cranial nerves II through XII are grossly intact. Motor and sensory are also intact. Normal speech, volume and content. Symmetrical smile. MUSCULOSKELETAL: Normal extremities with adequate strength and full range of motion. LYMPHATICS: No significant lymphadenopathy is noted PSYCHIATRIC: Normal psychiatric evaluation. - Labs CBC & Chem 7: 11/29/23 13:16 11/29/23 06:04 Labs: Abnormal Lab Results - Last 24 Hours (Table) 11/29/23 11/29/23 Range/Units 06:04 06:04 RBC 3.93 L (4.10-5.20) X 10*6/uL Hgb 11.9 L (12.0-15.0) g/dL Hct 36.8 L (37.2-46.3) % BUN 8.2 L (9.0-27.0) mg/dL BUN/Creatinine Ratio 10.25 L (12.00-20.00) Ratio Glucose 114 H (70-110) mg/dL Total Bilirubin 3.4 H (0.3-1.2) mg/dL Conjugated Bilirubin 2.75 H (0.20-0.40) mg/dL AST 309 H (13-35) U/L ALT 373 H (8-44) U/L Total Protein 5.6 L (6.2-8.2) g/dL Assessment and Plan Assessment: 1. Acute cholecystitis/cholelithiasis --Ultrasound abdomen reveals gallbladder sludge; CT of the abdomen reveals uncomplicated cholelithiasis -- Patient has been placed on IV fluids; has been made n.p.o.; pain control with IV morphine; patient has been placed on IV antibiotics -Consult surgery for further recommendations 2. Elevated bilirubin and LFTs; likely related to acute cholecystitis/cholelithiasis -- Concern for possible choledocholithiasis -- Surgery recommending to monitor liver enzymes closely with plans to transfer patient for possible ERCP if LFTs and total bilirubin continue to trend up -Patient is tentatively scheduled for laparoscopic cholecystectomy DVT prophylaxis; SCDs CODE STATUS; full code
[2023-11-30] MEDS: ENOXAPARIN 40 MG/0.4 ML SYRINGE SQ SCH (08:30)
[2023-11-30] MEDS: SIMETHICONE 40 MG/0.6 ML DROPS 2,000 MG/30 ML BOTTLE PO SCH (10:01)
[2023-11-30 10:46] LABS: ALT 580 U/L (8-44); AST 387 U/L (13-35); Albumin 4.1 g/dL (3.8-4.9); Albumin/Globulin Ratio 1.95 Ratio (1.60-3.17); Alkaline Phosphatase 177 U/L (41-126); Bilirubin, Conjugated 5.32 mg/dL (0.20-0.40); Bilirubin,Unconjugated 0.78 mg/dL (0.20-1.00); Blood Urea Nitrogen 4.8 mg/dL (9.0-27.0); Calcium 9.1 mg/dL (8.7-10.3); Carbon Dioxide 22.1 mmol/L (21.6-31.8); Chloride 102 mmol/L (96-109); Globulin 2.1 g/dL (1.6-3.3); Glucose 138 mg/dL (70-110); Potassium 4.5 mmol/L (3.5-5.5); Sodium 135 mmol/L (135-145); Total Bilirubin 6.1 mg/dL (0.3-1.2); Total Protein 6.2 g/dL (6.2-8.2)
[2023-11-30] MEDS: SODIUM CHLORIDE 0.9% 1,000 ML IV SCH (11:16)
[2023-11-30] MEDS: HYDROcodone/APAP 5-325MG 1 EACH TAB PO PRN (11:22)
[2023-11-30 12:15] LABS: Basophils # (M) 0 X 10*3/uL (0.00-0.10); HCT 38.5 % (37.2-46.3); HGB 12.9 g/dL (12.0-15.0); MCH 30.6 pg (27.0-32.0); MCHC 33.5 g/dL (32.0-37.0); MCV 91.2 FL (80.0-97.0); Mean Platelet Volume 11.2 FL (9.5-12.2); NRBC Per 100 WBC 0 X 10*3/uL (0.00-0.01); Neutrophils # (M) 11.37 X 10*3/uL (1.80-7.70); Neutrophils % (M) 86 %; Platelet Count 254 X 10*3/uL (140-440); RBC 4.22 X 10*6/uL (4.10-5.20); RDW 13.4 % (11.5-14.5); WBC 13.22 X 10*3/uL (4.50-10.00)
[2023-11-30 12:46] LABS: Eosinophils # (M) 0.13 X 10*3/uL (0.04-0.35); Lymphocytes # (M) 1.19 X 10*3/uL (0.90-5.00); Monocytes # (M) 0.53 X 10*3/uL (0.20-1.00); RBC Morphology Normal (Normal)
--- NOTE | 2023-11-30 14:38 | P.PN ---
Subjective Progress Note Date: 11/30/23 CHIEF COMPLAINT: Cholecystitis HISTORY OF PRESENT ILLNESS: Patient is postop day #1 status post laparoscopic cholecystectomy. Patient does complain of abdominal pain but describes it as gas pains. She denies any nausea or vomiting. Oral intake is decreased. She does report her urine is dark. Afebrile. WBC is down from 14-13.2 Hgb 12.9 platelets 254 total bilirubin 3.4-6.1 LFTs trending upwards. PHYSICAL EXAM: VITAL SIGNS: Reviewed. GENERAL: Well-developed in no acute distress. HEENT: Scleral icterus present ABDOMEN: Soft. Nondistended. Tender with palpation. Incision sites clean dry and intact NEUROLOGIC: Alert and oriented. Cranial nerves II through XII grossly intact. ASSESSMENT: 1. Acute cholecystitis 2. Possible choledocholithiasis. Elevated LFTs and total bilirubin PLAN: -Repeat LFTs and total bilirubin tomorrow -Resume IV fluids at 75 ml/per hour -Continue antibiotic -[place] added for oral pain medication -Mylicon gas drops added for pain -Encourage patient to ambulate -DVT prophylaxis Lovenox and GI prophylaxis Protonix Physician Director Of Field Sales note has been reviewed by physician. Signing provider agrees with the documented findings, assessment, and plan of care. Objective - Vital Signs Vital signs: Vital Signs Temp 98.1 F 11/30/23 07:42 Pulse 71 11/30/23 07:42 Resp 16 11/30/23 07:42 BP 172/87 11/30/23 07:42 Pulse Ox 94 L 11/30/23 07:42 FiO2 Intake & Output 11/29/23 11/30/23 11/30/23 18:59 06:59 18:59 Intake Total 50 118 Balance 50 118 Intake: IV 50 Oral 118 Other: # Voids 3 1 1 - Labs CBC & Chem 7: 11/30/23 06:20 11/30/23 06:20 Labs: Abnormal Lab Results - Last 24 Hours (Table) 11/30/23 11/30/23 Range/Units 06:20 06:20 WBC 13.22 H (4.50-10.00) X 10*3/uL Neutrophils # (Manual) 11.37 H (1.80-7.70) X 10*3/uL BUN 4.8 L (9.0-27.0) mg/dL BUN/Creatinine Ratio 6.00 L (12.00-20.00) Ratio Glucose 138 H (70-110) mg/dL Total Bilirubin 6.1 H (0.3-1.2) mg/dL Conjugated Bilirubin 5.32 H (0.20-0.40) mg/dL AST 387 H (13-35) U/L ALT 580 H (8-44) U/L Alkaline Phosphatase 177 H (41-126) U/L
--- NOTE | 2023-12-01 05:25 | P.PN ---
Subjective Progress Note Date: 11/30/23 48-year-old female who presents to the emergency department complaining of right upper quadrant abdominal pain. Patient states it started yesterday and she came into the hospital was told it was her gallbladder and she was to follow-up with Dr. Cox. Patient comes back today because the pain is not resolved in fact is getting worse. She states she is very nauseated and the pain is much more significant in the right upper quadrant. Patient denies any chest pain difficulty breathing shortness of breath. Patient denies any vomiting or diarrhea. Blood work completed in ED reveals a WBC of 9.2, hemoglobin of 14.3 and platelet count of 253, sodium 141, potassium 4.1, BUNs/creatinine of 8/0.68 and blood glucose of 104, total bilirubin elevated at 2.5 with AST of 231 and ALT of 224, alk phosphatase is within normal limits, in malaise lipase are normal; UA is unremarkable CT of the abdomen and pelvis completed in ED reveals small amount of free fluid in cul-de-sac; possible recent ovulation. No evidence of appendicitis or diverticulitis. CT does reveal uncomplicated cholelithiasis --Patient continues to report pain; fair control on current pain regimen; labs are reviewed and liver enzymes and bilirubin continue to trend down -- Surgery on board; plan for cholecystectomy as long as liver enzymes and bilirubin are not getting worse 11/29/2023 Patient is seen and evaluated in room at bedside; status post laparoscopic cholecystectomy; requires pain control with current regimen Lab review reveals WBC trended up to 14.0 from 8.14 this morning, sodium of 140, potassium 4.9, BUNs/creatinine of 8.2/0.8, total bilirubin trended up to 3.4 from 2.2 yesterday AST up to 309 with ALT of 373 -- Patient has status post laparoscopic cholecystectomy, POD #0; remains on IV antibiotics in form of Levaquin 500 milligrams daily -- Patient has been placed on a low-fat diet -Continue to monitor CBC, liver enzymes, procalcitonin 11/30/2023 Patient seen and evaluated in follow-up today status post laparoscopic cholecystectomy. Reporting significant pain likely gas pain patient is extremely uncomfortable and attempting to move around in the bed for comfort. Patient has been encouraged to increase activity as tolerated and frequent walking along with gas drops. Pain medications being adjusted. White count mildly elevated and patient is afebrile recommend follow-up labs. Liver functions remain elevated and will continue gentle hydration and follow-up. Encouraged incentive spirometer use at least 10 times every hour while awake. Continue with antinausea medications as well. Encourage small frequent meals. Patient to continue on antibiotics for now Review of systems: Constitutional: No reports of fatigue, fever, or chills Cardiovascular: No reports of chest pain or palpitations Respiratory: No reports of shortness of breath or cough GI: reports of nausea, no vomiting, reports passing some gas, mostly belching, severe abdominal pain reported : No reports of dysuria or retention Neurovascular: reports of generalized weakness All medications have been reviewed Physical exam: Gen: This is a 48-year-old female who is awake, alert oriented x 3, well- developed, well-nourished HEENT: Head is atraumatic, normocephalic. Pupils equal, round. Sclerae is anicteric. NECK: Supple. No JVD. No lymphadenopathy. No thyromegaly. LUNGS: Diminished breath sounds bilaterally otherwise clear to auscultation. No wheezes or rhonchi. No intercostal retractions. HEART: S1, S2 are muffled ABDOMEN: Soft. Bowel sounds are present. No masses. Extreme tenderness with light palpation. EXTREMITIES: No pedal edema. No calf tenderness. NEUROLOGICAL: Patient is awake, alert and oriented x3. Cranial nerves 2 through 12 are grossly intact. Assessment: -Acute cholecystitis/cholelithiasis -Elevated bilirubin and LFTs; likely related to acute cholecystitis /cholelithiasis, concerns for possible choledocholithiasis -GI prophylaxis -Continued ongoing nicotine dependence -DVT prophylaxis; SCDs -full code Plan: Patient being followed by general surgery for cholecystitis, status post laparoscopic cholecystectomy LFTs remain elevated likely secondary to cholecystitis, will continue gentle hydration and monitor and follow-up on repeat labs Continue to encourage incentive spirometer at least 10 times every hour while awake Encouraged increased activity as tolerated and frequent walking Continue with pain management, gastrectomy added, continue antinausea medications as needed Patient's white count remains mildly elevated and patient is afebrile. Continue antibiotics for now Overall prognosis is guarded The impression and plan of care has been dictated by Michelle Castillo, Nurse Practitioner as directed. Dr. Sanchez MD I have performed a history and examination and MDM of this patient, discussed the same with the dictator, and agree with the dictator's assessment and plan as written ,documented as a scribe. Based on total visit time, I have performed more than 50% of the visit. Objective - Vital Signs Vital signs: Vital Signs Temp 98.1 F 11/30/23 07:42 Pulse 71 11/30/23 07:42 Resp 16 11/30/23 07:42 BP 172/87 11/30/23 07:42 Pulse Ox 94 L 11/30/23 07:42 FiO2 Intake & Output 11/29/23 11/30/23 11/30/23 18:59 06:59 18:59 Intake Total 50 118 Balance 50 118 Intake: IV 50 Oral 118 Other: # Voids 3 1 1 - Labs CBC & Chem 7: 11/30/23 06:20 11/30/23 06:20 Labs: Abnormal Lab Results - Last 24 Hours (Table) 11/29/23 11/30/23 Range/Units 13:16 06:20 WBC 14.0 H (3.8-10.6) k/uL BUN 4.8 L (9.0-27.0) mg/dL BUN/Creatinine Ratio 6.00 L (12.00-20.00) Ratio Glucose 138 H (70-110) mg/dL Total Bilirubin 6.1 H (0.3-1.2) mg/dL Conjugated Bilirubin 5.32 H (0.20-0.40) mg/dL AST 387 H (13-35) U/L ALT 580 H (8-44) U/L Alkaline Phosphatase 177 H (41-126) U/L
[2023-12-01] MEDS: PANTOPRAZOLE 40 MG TABLET PO SCH (05:51)
[2023-12-01 10:12] LABS: BUN/Creat Ratio 6.71 Ratio (12.00-20.00); Blood Urea Nitrogen 4.7 mg/dL (9.0-27.0); Chloride 101 mmol/L (96-109); Glucose 146 mg/dL (70-110); Potassium 4.2 mmol/L (3.5-5.5); Sodium 136 mmol/L (135-145)
[2023-12-01 10:13] LABS: ALT 499 U/L (8-44); AST 256 U/L (13-35); Albumin 4.1 g/dL (3.8-4.9); Albumin/Globulin Ratio 1.86 Ratio (1.60-3.17); Alkaline Phosphatase 214 U/L (41-126); Calcium 9.2 mg/dL (8.7-10.3); Carbon Dioxide 22.7 mmol/L (21.6-31.8); Globulin 2.2 g/dL (1.6-3.3); Total Bilirubin 7.9 mg/dL (0.3-1.2); Total Protein 6.3 g/dL (6.2-8.2)
[2023-12-01 11:17] LABS: Basophils # (A) 0.06 X 10*3/uL (0.00-0.10); Basophils % (A) 0.4 %; Eosinophils # (A) 0.01 X 10*3/uL (0.04-0.35); Eosinophils % (A) 0.1 %; HCT 40.5 % (37.2-46.3); HGB 13.3 g/dL (12.0-15.0); Lymphocytes # (A) 1.53 X 10*3/uL (0.90-5.00); Lymphocytes % (A) 10.6 %; MCH 30.2 pg (27.0-32.0); MCHC 32.8 g/dL (32.0-37.0); Mean Platelet Volume 11.4 FL (9.5-12.2); Monocytes # (A) 1.19 X 10*3/uL (0.20-1.00); Monocytes % (A) 8.2 %; NRBC Per 100 WBC 0 X 10*3/uL (0.00-0.01); Neutrophils # (A) 11.59 X 10*3/uL (1.80-7.70); Neutrophils % (A) 80.1 %; Platelet Count 275 X 10*3/uL (140-440); RDW 13.9 % (11.5-14.5); WBC 14.46 X 10*3/uL (4.50-10.00)
--- NOTE | 2023-12-01 11:22 | P.PN ---
Subjective Progress Note Date: 12/01/23 CHIEF COMPLAINT: Cholecystitis HISTORY OF PRESENT ILLNESS: Patient is postop day #2 status post laparoscopic cholecystectomy. Patient continues to complain of abdominal pain. Her LFTs remain elevated and total bilirubin is now up to 7.9. Afebrile. PHYSICAL EXAM: VITAL SIGNS: Reviewed. GENERAL: Well-developed in no acute distress. HEENT: Scleral icterus present ABDOMEN: Soft. Nondistended. Tender with palpation. Incision sites clean dry and intact NEUROLOGIC: Alert and oriented. Cranial nerves II through XII grossly intact. ASSESSMENT: 1. Acute cholecystitis 2. Possible choledocholithiasis. Elevated LFTs and total bilirubin PLAN: -Recommend transfer to [facility] for patient to be evaluated by GI service for ERCP procedure for possible choledocholithiasis. Patient's total bilirubin level is increasing LFTs remain elevated. Dr. Olvera has already talked with transfer team at [facility]. They have accepted patient. -Continue IV fluids -Continue antibiotics -Continue pain management -DVT prophylaxis Lovenox and GI prophylaxis Protonix Physician Senior Logistics Manager note has been reviewed by physician. Signing provider agrees with the documented findings, assessment, and plan of care. Objective - Vital Signs Vital signs: Vital Signs Temp 98.3 F 12/01/23 07:49 Pulse 90 12/01/23 07:49 Resp 16 12/01/23 07:49 BP 163/91 12/01/23 07:49 Pulse Ox 94 L 12/01/23 07:49 FiO2 Intake & Output 11/30/23 12/01/23 12/01/23 18:59 06:59 18:59 Intake Total 118 Balance 118 Intake: Oral 118 Other: Voiding Method Toilet # Voids 4 4 - Labs CBC & Chem 7: 11/30/23 06:20 12/01/23 04:34 Labs: Abnormal Lab Results - Last 24 Hours (Table) 11/30/23 12/01/23 Range/Units 06:20 04:34 WBC 13.22 H (4.50-10.00) X 10*3/uL Neutrophils # (Manual) 11.37 H (1.80-7.70) X 10*3/uL Anion Gap 12.30 H (4.00-12.00) mmol/L BUN 4.7 L (9.0-27.0) mg/dL BUN/Creatinine Ratio 6.71 L (12.00-20.00) Ratio Glucose 146 H (70-110) mg/dL Total Bilirubin 7.9 H (0.3-1.2) mg/dL AST 256 H (13-35) U/L ALT 499 H (8-44) U/L Alkaline Phosphatase 214 H (41-126) U/L
--- NOTE | 2023-12-01 14:08 | P.DS ---
Providers Date of admission: 11/27/23 13:40 Expected date of discharge: 12/01/23 Attending physician: Leo Min Consults: 11/27/23 13:38 Consult Physician Urgent Consulting Provider: Jose Olvera Consult Reason/Comments: Abdominal pain Do you want consulting provider notified?: Yes Primary care physician: Deepa Hernandez [facility] Course: Final diagnosis -Acute cholecystitis/cholelithiasis status post acute laparoscopic cholecystectomy -Elevated bilirubin and LFTs; trending up, secondary to possible choledocholithiasis, general surgery following and patient will be transferred to [facility] for GI services for possible ERCP -GI prophylaxis -Continued ongoing nicotine dependence -DVT prophylaxis; SCDs -full code Discharge disposition Patient is being transferred in a stable condition with guarded prognosis to [facility] in [place] for further GI evaluation for possible ERCP. Patient will follow-up with Dr. Son Min in the outpatient setting upon discharge. Patient has been accepted by Dr. Shay Padilla gastroenterology at [facility] currently awaiting a bed. Total time taken is greater than 35 minutes. Hospital course This is a 48-year-old female who was recently admitted with with abdominal pain with nausea and vomiting found to have acute cholecystitis with cholelithiasis. Patient is status post laparoscopic cholecystectomy although continues to have elevated LFTs and total bilirubin is elevating with continued severe 10/10 pain and is being followed by general surgery recommending transfer to tertiary treatment center as we currently have no GI services and patient would likely need ERCP. Patient is agreeable to the transfer and general surgery has contacted GI at [facility] and accepted the patient currently awaiting a bed. Continue with pain management and continue with antibiotics in the form of Levaquin 500 mg IV for now. White count is trending down and patient is afebrile although again liver functions and bilirubin is elevated. Patient is maintained on normal saline along with pain management. Continue with supplemental nausea medication as needed along with Protonix. Patient has been instructed to follow-up with primary care provider as well as general surgery outpatient. Currently no reports of chest pain, shortness of breath, or palpitations. Patient is afebrile. Patient reports of nausea, spitting up some bile, no vomiting and patient is passing gas. Patient has not had a bowel movement since procedure. Patient will be transferred to [facility] in [place] today once a bed is available. Physical exam: Gen: This is a 48-year-old female who is awake, alert and oriented x 3, well- developed, well-nourished HEENT: Head is atraumatic, normocephalic. Pupils equal, round. Sclerae is anicteric. NECK: Supple. No JVD. No lymphadenopathy. No thyromegaly. LUNGS: Clear to auscultation. No wheezes or rhonchi. No intercostal retractions. HEART: Regular rate and rhythm. No murmur. ABDOMEN: Soft. Bowel sounds are present. No masses. Extreme left and right upper quadrant tenderness on palpation. EXTREMITIES: No pedal edema. No calf tenderness. NEUROLOGICAL: Patient is awake, alert and oriented x3. Cranial nerves 2 through 12 are grossly intact. Please refer to medication reconciliation sheet for a list of medications. The impression and plan of care has been dictated by Michelle Castillo, Nurse Practitioner as directed. Dr. Sanchez MD I have performed a history and examination and MDM of this patient, discussed the same with the dictator, and agree with the dictator's assessment and plan as written ,documented as a scribe. Based on total visit time, I have performed more than 50% of the visit. Patient Condition at Discharge: Stable Plan - Discharge Summary Discharge Rx Participant: No New Discharge Prescriptions: New oxyCODONE HCL [oxyCODONE HCL (IR)] 5 mg PO Q6H 3 Days #12 cap Discharge Medication List oxyCODONE HCL [oxyCODONE HCL (IR)] 5 mg PO Q6H 3 Days #12 cap 11/28/23 [Rx] Follow up Appointment(s)/Referral(s): Deepa Hernandez MD [Primary Care Provider] - 1-2 days
[2023-12-01] MEDS: HYDROcodone/APAP 7.5-325MG 1 EACH TAB PO PRN (18:06)
[2023-12-02 06:24] LABS: Basophils # (A) 0.1 k/uL (0-0.2); Basophils % (A) 1 %; Eosinophils # (A) 0.1 k/uL (0-0.7); Eosinophils % (A) 1 %; HCT 41.1 % (34.0-46.0); HGB 13.8 gm/dL (11.4-16.0); Lymphocytes # (A) 1.7 k/uL (1.0-4.8); Lymphocytes % (A) 16 %; MCH 30.8 pg (25.0-35.0); MCHC 33.5 g/dL (31.0-37.0); MCV 91.8 fL (80.0-100.0); Mean Platelet Volume 8.4; Monocytes # (A) 0.8 k/uL (0-1.0); Monocytes % (A) 7 %; Neutrophils # (A) 7.8 k/uL (1.3-7.7); Neutrophils % (A) 73 %; Platelet Count 260 k/uL (150-450); RBC 4.47 m/uL (3.80-5.40); RDW 14.4 % (11.5-15.5); WBC 10.7 k/uL (3.8-10.6)
[2023-12-02 06:38] LABS: ALT 375 U/L (4-34); AST 147 U/L (14-36); African American GFR (CKD) >90 (>60 ml/min/1.73 sqM); Albumin 3.8 g/dL (3.5-5.0); Albumin/Globulin Ratio 1.5; Alkaline Phosphatase 225 U/L (38-126); Anion Gap 8 mmol/L; Blood Urea Nitrogen 6 mg/dL (7-17); Calcium 9.2 mg/dL (8.4-10.2); Carbon Dioxide 21 mmol/L (22-30); Chloride 107 mmol/L (98-107); Globulin 2.6 g/dL; Glucose 108 mg/dL (74-99); Non-African American GFR(CKD) >90 (>60 ml/min/1.73 sqM); Potassium 3.9 mmol/L (3.5-5.1); Sodium 136 mmol/L (137-145); Total Bilirubin 7.6 mg/dL (0.2-1.3); Total Protein 6.4 g/dL (6.3-8.2)
[2023-12-02] MEDS ORDERED: bisacodyL 10 MG SUPP RECTAL PRN (08:49)
[2023-12-02] MEDS: LACTULOSE 20 GM/30 ML CUP PO ONE (10:40)
[2023-12-02] MEDS: SENNOSIDES 8.6 MG TAB PO SCH (10:40)
--- NOTE | 2023-12-02 12:07 | P.PN ---
Subjective Progress Note Date: 12/02/23 CHIEF COMPLAINT: Cholecystitis HISTORY OF PRESENT ILLNESS: Patient is postop day #12 status post laparoscopic cholecystectomy. Patient continues to complain of same abdominal pain. Oral intake is decreased. She denies any nausea or vomiting. She reports not having bowel movement for 7 days. She is having flatus. Afebrile. WBC is down from 14.46-10.7 total bilirubin 7.6 AST 147 ALT 375 and alk phos 225 PHYSICAL EXAM: VITAL SIGNS: Reviewed. GENERAL: Well-developed in no acute distress. HEENT: Scleral icterus present ABDOMEN: Soft. Nondistended. Epigastric and RUQ tenderness. Incision sites clean dry and intact NEUROLOGIC: Alert and oriented. Cranial nerves II through XII grossly intact. SKIN: jaundiced ASSESSMENT: 1. Acute cholecystitis 2. Possible choledocholithiasis. Elevated LFTs and total bilirubin 3. Constipation PLAN: -Patient is awaiting bed availability for transfer to [facility] for evaluation by GI service for ERCP for possible choledocholithiasis. -Continue IV fluids -Continue antibiotics -Continue pain management -Lactulose added for constipation. Agree with Senokot and Dulcolax suppository -DVT prophylaxis Lovenox and GI prophylaxis Protonix Physician Security Sales Manager note has been reviewed by physician. Signing provider agrees with the documented findings, assessment, and plan of care. Objective - Vital Signs Vital signs: Vital Signs Temp 98.0 F 12/02/23 07:05 Pulse 81 12/02/23 07:05 Resp 16 12/02/23 07:05 BP 159/87 12/02/23 07:05 Pulse Ox 97 12/02/23 07:05 FiO2 Intake & Output 12/01/23 12/02/23 12/02/23 18:59 06:59 18:59 Intake Total 118 360 Balance 118 360 Intake: Oral 118 360 Other: Voiding Method Toilet # Voids 4 5 - Labs CBC & Chem 7: 12/02/23 06:01 12/02/23 06:01 Labs: Abnormal Lab Results - Last 24 Hours (Table) 12/02/23 12/02/23 Range/Units 06:01 06:01 WBC 10.7 H (3.8-10.6) k/uL Neutrophils # 7.8 H (1.3-7.7) k/uL Sodium 136 L (137-145) mmol/L Carbon Dioxide 21 L (22-30) mmol/L BUN 6 L (7-17) mg/dL Glucose 108 H (74-99) mg/dL Total Bilirubin 7.6 H (0.2-1.3) mg/dL AST 147 H (14-36) U/L ALT 375 H (4-34) U/L Alkaline Phosphatase 225 H (38-126) U/L
[2023-12-02 20:15] VITALS: BP 136/82; PULSE 90; RESP 18; TEMP 98
== END 2023-12-02 20:25 | disposition short-term general hospital (02) | DRG 263 ==
LOC: EC 08:52 → 6NMEDSUR 13:40
PROVIDERS: ADMIT Hospitalist; ATTEND Hospitalist
PROC: 0FT44ZZ Resection of Gallbladder, Percutaneous Endoscopic Approach (ICD-10-PCS; principal; 2023-11-29 08:00)
DX: K80.42 Calculus of bile duct with acute cholecystitis without obstruction (principal); F17.200 Nicotine dependence, unspecified, uncomplicated; K80.00 Calculus of gallbladder with acute cholecystitis without obstruction; K82.8 Other specified diseases of gallbladder; Z75.1 Person awaiting admission to adequate facility elsewhere; Z28.310 Unvaccinated for COVID-19; R74.01 Elevation of levels of liver transaminase levels; Z88.1 Allergy status to other antibiotic agents; Z88.0 Allergy status to penicillin; Z88.8 Allergy status to other drugs, medicaments and biological substances; Z90.79 Acquired absence of other genital organ(s); Z90.722 Acquired absence of ovaries, bilateral
CPT/HCPCS: 36415; 74177; 80048; 80053; 80074; 80076; 81003; 82150; 82248; 83605; 83690; 85025; 85027; 88304; 96361; 96374; 96375; 96376; 99285